=== PATIENT | male | born 1955 | race Caucasian/White ===

== ENCOUNTER → 2018-06-20 07:00 | Outpatient (CLI) | payer OTHER, SELFPAY ==
[2018-06-20 07:38] LABS: AST(SGOT) 30 U/L (15-37); Alanine Aminotransfer ALT/SGPT 37 U/L (16-61); Albumin, Serum 3.7 g/dL (3.2-5.0); Alkaline Phosphatase 91 U/L (45-117); Anion Gap 5 (5-15); BUN 15 mg/dL (7-18); BUN/Creat Ratio 13.4 RATIO (10-20); Calcium,Total 8.7 mg/dL (8.5-10.1); Chloride 107 mmol/L (98-107); Cholesterol 146 mg/dL (200); Creatinine, Serum 1.12 mg/dL (0.70-1.30); EST Glomerular Filtration Rate 71 mL/min (>60); Est Glom Filt Rate - Afr Amer 85 mL/min (>60); Globulin 3.7 g/dL (2.2-4.2); Glucose 120 mg/dL (74-106); High Density Lipoprotein 37 mg/dL; Potassium 4.7 mmol/L (3.5-5.1); Protein, Total 7.4 g/dL (6.4-8.2); Sodium Level 140 mmol/L (136-145); Triglycerides 107 mg/dL; Very Low Density Lipoprotein 21 mg/dL (5-40)
== END ==
PROVIDERS: Family Provider Family Medicine; PCP Family Medicine; Referring Provider Family Medicine; Visit Provider Family Medicine
DX: Z00.00 Encounter for general adult medical examination without abnormal findings (principal)
CPT/HCPCS: 36415; 80053; 80061

== ENCOUNTER → 2018-09-19 10:46 | Outpatient (CLI) | payer OTHER, SELFPAY ==
[2018-09-19 10:04] VITALS: BMI 39.2
--- NOTE | 2018-09-19 10:48 | RAD_ITS ---
STUDY: X-RAY CHEST REASON FOR EXAM: Male, 63 years old. Productive cough TECHNIQUE: Frontal and lateral views of the chest. COMPARISON: None. FINDINGS: The lungs are clear and expanded. There is no demonstrated pleural abnormality. Normal size heart. Normal mediastinum and jerrica. Normal visualized pulmonary arteries. Normal visualized aortic arch and descending thoracic aorta. There are diffuse degenerative changes of the visualized thoracic spine. Normal visualized ribs, clavicles, and shoulders. There is no demonstrated abnormality of the visualized soft tissue structures of the upper abdomen. RAD/Chest PA and Lateral IMPRESSION: No acute pulmonary findings. Electronically Signed: Martin Rivera MD at 4:55 EST Tel , Service support ,
== END ==
PROVIDERS: Family Provider Family Medicine; PCP Family Medicine; Referring Provider Nurse Practitioner Family; Visit Provider Nurse Practitioner Family
DX: R05 Cough (principal)
CPT/HCPCS: 71046

== ENCOUNTER → 2019-07-31 06:37 | Outpatient (CLI) | payer OTHER, SELFPAY ==
[2019-07-08 15:25] VITALS: BMI 39.2
[2019-07-31 08:32] LABS: Hemoglobin A1c 6.2 % (4.2-6.3)
== END ==
PROVIDERS: Family Provider Family Medicine; PCP Family Medicine; Referring Provider Family Medicine; Visit Provider Family Medicine
DX: R73.01 Impaired fasting glucose (principal)
CPT/HCPCS: 36415; 83036

== ENCOUNTER → 2021-06-07 09:52 | Outpatient (CLI) | payer MEDICARE, SELFPAY ==
--- NOTE | 2021-06-07 10:37 | RAD_ITS ---
STUDY: X-RAY - RIGHT HAND REASON FOR EXAM: Male, 66 years old. Pain and swelling TECHNIQUE: 2 view(s) of the hand. COMPARISON: None. FINDINGS: Normal radiocarpal articulation. Normal distal radioulnar joint. Normal visualized carpal bones. Normal carpal articulations Normal carpometacarpal articulation of the thumb. Normal second through fifth carpometacarpal joints. Normal metacarpi. Normal metacarpophalangeal joint of the thumb. Normal interphalangeal joint of the thumb. Normal proximal and distal phalanges of the thumb. Normal metacarpophalangeal joints of the second through fifth fingers. There is diffuse articular joint space narrowing of the proximal and distal interphalangeal joints of the second through fifth fingers, with gullwing deformities, and subchondral erosions. Normal phalanges of the second through fifth fingers. The soft tissue structures are unremarkable. RAD/Hand 2 Views IMPRESSION: Distal joint arthrosis, no demonstrated fracture or suspicious osseous lesion Electronically Signed: Hollis Devries MD at 14:16 EDT , Service support ,
--- NOTE | 2021-06-07 10:38 | RAD_ITS ---
STUDY: X-RAY - LEFT HAND REASON FOR EXAM: Male, 66 years old. SWOLLEN JOINTS -- BILATERAL 2 VIEW HAND PER ORDER TECHNIQUE: view(s) of the hand. COMPARISON: None. FINDINGS: Normal radiocarpal articulation. Normal distal radioulnar joint. Normal visualized carpal bones. Normal carpal articulations Normal carpometacarpal articulation of the thumb. Normal second through fifth carpometacarpal joints. Normal metacarpi. Normal metacarpophalangeal joint of the thumb. Normal interphalangeal joint of the thumb. Normal proximal and distal phalanges of the thumb. Normal metacarpophalangeal joints of the second through fifth fingers. There is diffuse articular joint space narrowing of the proximal and distal interphalangeal joints of the second through fifth fingers, with gullwing deformities and subchondral erosions. Normal phalanges of the second through fifth fingers. The soft tissue structures are unremarkable. RAD/Hand 2 Views IMPRESSION: Distal joint arthrosis, no demonstrated fracture or suspicious osseous lesion Electronically Signed: Hollis Devries MD at 14:16 EDT , Service support ,
[2021-06-07 11:14] LABS: AST(SGOT) 23 U/L (15-37); Alanine Aminotransfer ALT/SGPT 41 U/L (16-61); Albumin, Serum 3.6 g/dL (3.2-5.0); Alkaline Phosphatase 85 U/L (45-117); Anion Gap 1 (5-15); BUN 16 mg/dL (7-18); Calcium,Total 9.1 mg/dL (8.5-10.1); Chloride 107 mmol/L (98-107); Cholesterol 169 mg/dL (200); Creatinine, Serum 1.07 mg/dL (0.70-1.30); EST Glomerular Filtration Rate 74 mL/min (>60); Est Glom Filt Rate - Afr Amer 89 mL/min (>60); Globulin 3.7 g/dL (2.2-4.2); Glucose 180 mg/dL (74-106); High Density Lipoprotein 40 mg/dL; Potassium 3.9 mmol/L (3.5-5.1); Protein, Total 7.3 g/dL (6.4-8.2); Sodium Level 139 mmol/L (136-145); Triglycerides 185 mg/dL; Very Low Density Lipoprotein 37 mg/dL (5-40)
== END ==
PROVIDERS: PCP Family Medicine; Referring Provider Family Medicine; Visit Provider Family Medicine
DX: Z13.6 Encounter for screening for cardiovascular disorders (principal); M19.041 Primary osteoarthritis, right hand; M19.042 Primary osteoarthritis, left hand
CPT/HCPCS: 36415; 73120; 80053; 80061

== ENCOUNTER → 2021-09-04 08:20 | Outpatient (CLI) | payer MEDICARE, SELFPAY ==
[2021-09-04 13:00] LABS: Hemoglobin A1c 6.2 % (3.8-5.6)
== END ==
PROVIDERS: PCP Family Medicine; Visit Provider Family Medicine
DX: R53.83 Other fatigue (principal); R73.9 Hyperglycemia, unspecified
CPT/HCPCS: 36415; 83036; 84403

== ENCOUNTER → 2022-07-04 | Outpatient (CLI) | payer MEDICARE, SELFPAY ==
[2022-07-04 12:24] LABS: Absolute Lymphocyte Count 3.15 X10^3/uL (0.83-4.51); Absolute Neutrophil Count 3.9 X10^3/uL (2.0-7.7); Basophil# 0.08 X10^3/uL; Basophil% 0.9 % (0-1); Eosinophil# 0.43 X10^3/uL; Eosinophils% 5.1 % (0-5); Hematocrit 47.1 % (40-54); Hemoglobin 15.3 g/dL (13.0-16.5); Lymphocyte # 3.15 X10^3/ul (0.83-4.51); Lymphocyte % 37.1 % (19-41); Mean Corp Hgb Conc 32.5 g/dL (32-36); Mean Corpuscular Hgb 27.8 pg (27.0-32.0); Mean Corpuscular Volume 85.6 fL (80-94); Mean Platelet Vol. 10.4 fl (6.2-12.0); Monocyte# 0.87 X10^3/uL; Monocyte% 10.3 % (0-10); NRBC Flagged by Analyzer 0 % (0-5); Neutrophil # 3.93 X10^3/uL (2.7-7.7); Neutrophil % 46.4 % (47-70); Platelet Count 218 K/mm3 (150-450); RBC Distribution Width CV 13.3 % (11.6-14.6); RBC Distribution Width SD 41.4 fl (35.1-43.9); White Blood Count 8.5 K/mm3 (4.4-11.0)
[2022-07-04 12:52] LABS: ALB/GLOB Ratio 1.1 RATIO (0.9-2.4); AST(SGOT) 27 U/L (15-37); Alanine Aminotransfer ALT/SGPT 46 U/L (16-61); Albumin, Serum 3.8 g/dL (3.2-5.0); Alkaline Phosphatase 87 U/L (45-117); Anion Gap 4 (5-15); BUN 15 mg/dL (7-18); BUN/Creat Ratio 13.5 RATIO (10-20); Calcium,Total 9.5 mg/dL (8.5-10.1); Chloride 108 mmol/L (98-107); Cholesterol 155 mg/dL (200); Creatinine, Serum 1.11 mg/dL (0.70-1.30); EST Glomerular Filtration Rate 70 mL/min (>60); Est Glom Filt Rate - Afr Amer 85 mL/min (>60); Globulin 3.6 g/dL (2.2-4.2); Glucose 88 mg/dL (74-106); High Density Lipoprotein 39 mg/dL; Potassium 4.4 mmol/L (3.5-5.1); Protein, Total 7.4 g/dL (6.4-8.2); Sodium Level 142 mmol/L (136-145); Thyroid Stim Hormone (TSH) 4.27 uIU/mL (0.358-3.74); Triglycerides 158 mg/dL; Very Low Density Lipoprotein 32 mg/dL (5-40)
[2022-07-04 13:16] LABS: Hemoglobin A1c 6.5 % (3.8-5.6)
== END | disposition home or self-care (01) ==
LOC: BIMLAB 11:02
PROVIDERS: PCP Family Medicine; Referring Provider Nurse Practitioner Family; Visit Provider Nurse Practitioner Family
DX: Z00.00 Encounter for general adult medical examination without abnormal findings (principal); E11.65 Type 2 diabetes mellitus with hyperglycemia; Z12.5 Encounter for screening for malignant neoplasm of prostate; G47.30 Sleep apnea, unspecified
CPT/HCPCS: 36415; 80053; 80061; 83036; 84153; 84443; 85025; G0103

== ENCOUNTER → 2023-07-11 | Outpatient (CLI) | payer MEDICARE, SELFPAY ==
--- NOTE | 2023-07-12 | LES_PTH ---
PATIENT: RODRÍGUEZ BROOKS III LOC: [facility] U#:[id number] AGE/SX: 68/M ROOM: RE07/11/[address]: Dr. Cristi Toledo DO : 1955 BED: DIS: 07/11/2023 SPEC #: [id number] RECD: 07/12/23 13:18 STATUS: [place] RESera #: [id number] TRAVIS: 07/12/23 00:[address]: Cristi Toledo DEPT: SURGICAL PATHOLOGY RECD BY: Kulwinder Covarrubias Tissues: Skin of back, NOS Procedures: Surgery Specimen Level IV HEADER OPERATION: Lesion removal from left mid back PRE-OP DIAGNOSIS: Basal cell carcinoma of back TISSUE SUBMITTED: Mid left back MICROSCOPIC DIAGNOSIS Left mid back lesion, shave biopsy: Basal cell carcinoma with ulceration and associated inflammation. See comment. ZORAN:cassia 07/15/2023 COMMENT The tumor is present at the deep margin of the specimen. Case has been reviewed in consultation with Dr. Jimenez who concurs with the above diagnosis. IDC:AM MICROSCOPIC DESCRIPTION Slides are reviewed. GROSS DESCRIPTION Received is one container labeled with the patient's name and not further designated. The specimen consists of a piece of persaud-white skin measuring 1.0 x 0.7 cm and up to 0.2 cm in thickness. The specimen is inked, serially sectioned and submitted entirely in one cassette. / SJ:rg 07/12/2023 TC:0 CPT: 47507
== END | disposition home or self-care (01) ==
LOC: LABSPEC 07-12 11:07
PROVIDERS: PCP Family Medicine; Referring Provider Family Medicine; Visit Provider Family Medicine
DX: C44.519 Basal cell carcinoma of skin of other part of trunk (principal)
CPT/HCPCS: 88305

== ENCOUNTER → 2023-08-27 | Outpatient (CLI) | payer MEDICARE, SELFPAY ==
[2023-08-27 16:40] LABS: AST(SGOT) 29 U/L (15-37); Alanine Aminotransfer ALT/SGPT 47 U/L (16-61); Albumin, Serum 3.9 g/dL (3.2-5.0); Alkaline Phosphatase 90 U/L (45-117); Anion Gap 2 (5-15); BUN 14 mg/dL (7-18); BUN/Creat Ratio 13.9 RATIO (10-20); Calcium,Total 8.9 mg/dL (8.5-10.1); Chloride 108 mmol/L (98-107); Cholesterol 158 mg/dL (200); Creatinine, Serum 1.01 mg/dL (0.70-1.30); EST Glomerular Filtration Rate 78 mL/min (>60); Est Glom Filt Rate - Afr Amer 95 mL/min (>60); Globulin 3.8 g/dL (2.2-4.2); Glucose 99 mg/dL (74-106); High Density Lipoprotein 41 mg/dL; Potassium 4.1 mmol/L (3.5-5.1); Protein, Total 7.7 g/dL (6.4-8.2); Sodium Level 140 mmol/L (136-145); Triglycerides 213 mg/dL; Very Low Density Lipoprotein 43 mg/dL (5-40)
== END | disposition home or self-care (01) ==
LOC: BIMLAB 15:12
PROVIDERS: PCP Family Medicine; Referring Provider Family Medicine; Visit Provider Family Medicine
DX: E11.9 Type 2 diabetes mellitus without complications (principal)
CPT/HCPCS: 36415; 80053; 80061

== ENCOUNTER → 2025-02-03 | Outpatient (CLI) | payer MEDICARE, SELFPAY ==
[2025-02-03 16:47] LABS: Absolute Lymphocyte Count 2.87 X10^3/uL (0.83-4.51); Absolute Neutrophil Count 3.4 X10^3/uL (2.0-7.7); Basophil# 0.11 X10^3/uL; Basophil% 1.5 % (0-1); Eosinophils% 5.3 % (0-5); Hematocrit 44.5 % (40-54); Hemoglobin 14.6 g/dL (13.0-16.5); Lymphocyte # 2.87 X10^3/ul (0.83-4.51); Mean Corp Hgb Conc 32.8 g/dL (32-36); Mean Corpuscular Volume 82.4 fL (80-94); Mean Platelet Vol. 10.6 fl (6.2-12.0); Monocyte# 0.77 X10^3/uL; Monocyte% 10.2 % (0-10); NRBC Flagged by Analyzer 0 % (0-5); Neutrophil % 44.9 % (47-70); Platelet Count 209 K/mm3 (150-450); RBC Distribution Width CV 13.4 % (11.6-14.6); RBC Distribution Width SD 39.9 fl (35.1-43.9); White Blood Count 7.6 K/mm3 (4.4-11.0)
[2025-02-03 17:56] LABS: ALB/GLOB Ratio 1.3 RATIO (0.9-2.4); AST(SGOT) 25 U/L (<=37); Alanine Aminotransfer ALT/SGPT 26 U/L (<=46); Albumin, Serum 4.2 g/dL (3.4-4.8); Alkaline Phosphatase 97 U/L (40-129); Anion Gap 10 (5-15); BUN 13 mg/dL (4-19); BUN/Creat Ratio 13.5 RATIO (10-20); Calcium,Total 9.4 mg/dL (7.6-11.0); Carbon Dioxide 26.1 mmol/L (21.0-32.0); Chloride 104 mmol/L (98-108); Cholesterol 152 mg/dL (<=200); Creatinine, Serum 0.98 mg/dL (0.70-1.20); EST Glomerular Filtration Rate 84 (>60); Globulin 3.1 g/dL (2.2-4.2); Glucose 108 mg/dL (70-99); High Density Lipoprotein 37 mg/dL; Low Density Lipoprotein Calc. 81 mg/dL; Protein, Total 7.3 g/dL (5.9-8.4); Sodium Level 141 mmol/L (133-145); Total Bilirubin 0.38 mg/dL (0.00-1.30); Triglycerides 171 mg/dL; Very Low Density Lipoprotein 34 mg/dL (5-40)
[2025-02-03 19:27] LABS: Hemoglobin A1c 7.5 % (<=5.6)
== END | disposition home or self-care (01) ==
LOC: BIMLAB 15:08
PROVIDERS: PCP Family Medicine; Referring Provider Physician Assistant; Visit Provider Physician Assistant
DX: E11.9 Type 2 diabetes mellitus without complications (principal); E66.9 Obesity, unspecified; R53.83 Other fatigue
CPT/HCPCS: 36415; 80053; 80061; 83036; 84443; 85025

== ENCOUNTER → 2025-02-10 | Outpatient (CLI) | payer MEDICARE, SELFPAY ==
--- NOTE | 2025-02-10 14:00 | US_ITS ---
PROCEDURE: TESTICULAR WITH ARTERIAL FLOW 02/10/2025 REASON FOR EXAM: SCROTAL MASS Left palpable lump. TECHNIQUE: Jiang scale imaging and color and spectral Doppler analysis of the scrotal contents. COMPARISON: None FINDINGS: RIGHT testicle: 4.2 cm x 3.4 cm x 2.3 cm Homogeneous echotexture. No intratesticular mass. Right epididymis: The epididymis measures 1.2 cm 1.4 cm x 1.3 cm. Small right hydrocele. LEFT testicle: 4 cm x 3.5 cm x 2.5 cm Homogeneous echotexture. No intratesticular mass. Left epididymis: The epididymis measuring 1 cm x 1.2 cm 1.4 cm. The palpable lump corresponds to a 1.5 cm x 1.4 cm 1.2 cm hypoechoic nodule along the epididymal tail with focal calcification. Other findings: Small left hydrocele. DOPPLER FINDINGS: Symmetric color doppler blood flow signal at both testes. Normal arterial inflow and venous outflow waveforms at both testes. US/Testicular with Arterial Flow IMPRESSION: Small bilateral hydroceles. The palpable lump corresponds to a 1.5 cm 1.4 cm 1.2 cm hypoechoic nodule with central calcification along the epididymal tail on the left side. Reading Location: [facility]
== END | disposition home or self-care (01) ==
LOC: US 13:59
PROVIDERS: PCP Family Medicine; Referring Provider Physician Assistant; Visit Provider Physician Assistant
DX: N50.89 Other specified disorders of the male genital organs (principal)
CPT/HCPCS: 76870; 93976

== ENCOUNTER → 2025-03-02 | Outpatient (CLI) | payer MEDICARE, SELFPAY ==
[2025-03-02 16:33] LABS: PSA,Total - Annual Screen 2.07 ng/mL (0.02-4.00)
--- OUTSIDE RECORDS SUMMARY | 2025-03-02 23:53 | XMS RPT_ITS | CCD ---
Author Organization [facility] Care Team Providers Care Card Folder Name Role Phone Unavailable Primary Care Provider UnavailDr. Pratik Landrum Primary Care Provider [phone] Dr. Pratik Toledo Referring Provider [phone] [place]ita DISTRIBUTION ESTIMATOR, NELLY Rodriguez Attending Provider [phone] PRATIK TOLEDO DO Primary Care Physician GINNA AYALA DO Attending Unavailable PRATIK TOLEDO DO Primary Care Unavailable Dr. Pratik Toledo Primary Care Provider [phone] Dr. Pratik Toledo Attending Provider [phone] Dr. Pratik Toledo Referring Provider [phone] Pratik Toledo DO Primary Care Provider PRATIK TOLEDO Primary Care Unavailable ERWIN CHOW Attending Unavailable ERWIN CHOW Referring Unavailable PRATIK TOLEDO Primary Care Unavailable Dr. Pratik Toledo DO Primary Care Provider [phone] Dr. Pratik Toledo DO Referring Provider [phone] Rogers Ortiz Attending Provider [phone] Rogers Ortiz Referring Provider [phone] Pratik Toledo DO Attending Provider [phone] Pratik Toledo Primary Care Unavailable Rogers Ortiz Attending Unavailable Rogers Ortiz Referring Unavailable Pratik Toledo Primary Care Unavailable Pratik Toledo Attending Unavailable Pratik Toledo Referring Unavailable Pratik Toledo R Primary Care Unavailable Rogers Ortiz Attending Unavailable Pratik Toledo R Referring Unavailable Pratik Toledo Attending Unavailable Tre, Pratik R Referring Unavailable Brown, Pratik R Primary Care Unavailable Pratik Toledo Attending Unavailable Pratik Toledo Referring Unavailable Pratik Toledo Primary Care Unavailable Pratik Toledo Primary Care Unavailable Rogers Ortiz Attending Unavailable Rogers Ortiz Referring Unavailable Allergies Allergy Classification Reported Allergen(s) Allergy Type Date of Onset Reaction(s) Facility (5 sources) semaglutide Drug Allergy 3 Abd cramps/diarrhea [facility] (1 source) semaglutide Drug allergy (disorder) 5 [facility] Repository Medications Current Medications Medication Drug Class(es) Dates Sig (Normalized) Sig (Original) amoxicillin 875 mg / clavulanate 125 mg oral tablet (1 source) Penicillin-class Antibacterial Start: 07-20-2023 End: 07-27-2023 take 1 tablet by mouth every twelve hours amoxicillin-clavu lanate 875 mg-125 mg oral tablet 1 tab(s), Oral, q12h, X 7 day(s), # 14 tab(s), 0 Refill(s), 07/27/23 5:05:00 AM EDT, 129.5 Start Date: 07/20/23 Stop Date: 07/27/23 Status: Ordered [place] (Nk) (3 sources) Start: 02-03-2025 [place] (Nk) Active February 03, 2025 12:00am Tirzepatide (Mounjaro) 5 mg/0.5 mL pen injector (1 source) Start: 02-17-2025 Tirzepatide (Mounjaro) 5 mg/0.5 mL pen injector Active 5 mg SC EVERY WEEK 2 February 17, 2025 12:00am Completed/Discontinued Medications Medication Drug Class(es) Dates Sig (Normalized) Sig (Original) Carboxymethylcellu lose-Citric (Plenity (Welcome Kit)) 0.75 gram capsule (6 sources) Start: 11-29-2021 End: 07-11-2023 take 1 capsule by mouth twice daily before lunch Carboxymethylcellul ose-Citric (Plenity (Welcome Kit)) 0.75 gram capsule Discontinued 3 NMA PO TWICE A DAY 180 November 29, 2021 1:00am July 11, 2023 2:31pm administer before lunch and evening meal/dinner Start: 11-29-2021 End: 07-11-2023 Carboxymethylcellulose-Citri c (Plenity (Welcome Kit)) 0.75 gram capsule Discontinued 3 CAP PO TWICE A DAY 180 November 29, 2021 12:00am July 11, 2023 1:31pm administer before lunch and evening meal/dinner Start: 11-29-2021 Carboxymethylc ellulose-Citric (Plenity (Welcome Kit)) 0.75 gram capsule Active 3 CAP PO TWICE A DAY 180 November 29, 2021 1:00am administer before lunch and evening meal/dinner codeine phosphate 2 mg/ml / guaiFENesin 20 mg/ml oral solution (6 sources) Opioid Agonist Start: 09-19-2018 End: 07-08-2019 take 5-10 mL by mouth every six hours as needed for cough Codeine-Guaifenesin (Cheratussin Ac) 10-100 mg/5 mL liquid Discontinued 0 PO EVERY 6 HOURS as needed for cough 120 September 19, 2018 1:00am July 08, 2019 3:24pm 5-10 mL PO Q6H PRN Start: 09-19-2018 End: 07-08-2019 take 5-10 mL by mouth every six hours as needed Codeine-Guaifenesin (Cheratussin Ac) 10-100 mg/5 mL liquid Discontinued 0 PO EVERY 6 HOURS 120 September 19, 2018 12:00am July 08, 2019 2:24pm 5-10 mL PO Q6H PRN fluorouracil 50 mg/ml topical cream (4 sources) Nucleoside Metabolic Inhibitor Start: 06-16-2024 End: 02-03-2025 Fluorouracil 5 % cream Discontinued 1 NMA TOPICAL TWICE A DAY 40 June 16, 2024 12:00am February 03, 2025 2:25pm phentermine hydrochloride 30 mg oral capsule (18 sources) Sympathomimetic Amine Anorectic Start: 08-04-2019 End: 06-02-2020 take 1 capsule by mouth once daily 2 hour(s) after breakfast Phentermine 30 mg capsule Discontinued 30 mg PO EVERY MORNING August 04, 2019 1:00am June 02, 2020 11:20am must administer 2 hours after breakfast Start: 06-25-2018 End: 09-19-2018 take 1 capsule by mouth once daily 2 hour(s) after breakfast Phentermine 30 mg capsule Discontinued 30 mg PO DAILY July 02, 2018 2:31pm September 19, 2018 11:04am administer 2 hours after breakfast predniSONE 10 mg oral tablet (6 sources) Start: 09-19-2018 End: 07-08-2019 Prednisone 10 mg tablet Discontinued 0 PO daily September 19, 2018 1:00am July 08, 2019 3:24pm 4 tabs for 3 days, then 3 tabs for 3 days, then 2 tabs for 3 days, then 1 tab for 3 days PO QDAY; administer with food or milk 0.25 mg, 0.5 mg dose 1.5 ml semaglutide 1.34 mg/ml pen injector (8 sources) Start: 07-04-2022 End: 07-11-2023 Semaglutide (Ozempic) 0.25 m g or 0.5 mg(2 mg/1.5 mL) pen injector Discontinued 0.25 mg SC EVERY WEEK 1.July 04, 2022 12:00am July 11, 2023 2:31pm for 4 doses Start: 09-07-2021 End: 11-29-2021 Semaglutide Discontinued 1 M G SC EVERY WEEK 3 September 07, 2021 12:00am November 29, 2021 2:54pm Semaglutide 1 mg/dose (2 mg/1.5 mL) pen injector (4 sources) Start: 09-07-2021 End: 11-29-2021 Semaglutide 1 mg/dose (2 mg/1.5 mL) pen injector Discontinued 1 mg SC EVERY WEEK 3 September 07, 2021 1:00am November 29, 2021 3:54pm tretinoin 0.5 mg/ml topical cream (5 sources) Retinoid Start: 08-27-2023 End: 02-03-2025 Tretinoin (Retin-A) 0.05 % cream Discontinued 1 NMA TOPICAL AT BEDTIME August 27, 2023 1:00am February 03, 2025 2:25pm Start: 08-27-2023 Tretinoin (Ret in-A) 0.05 % cream Active 1 APPLIC TOPICAL AT BEDTIME August 27, 2023 12:00am Problems Active Problems Problem Classification Problem Date Documented Da te Episodic/Chronic Acquired foot deformities (6 sources) Hammer toe; Translations: [Other hammer toe(s) (acquired), right foot] Onset: 08-12-2024 08-12-2024 Chronic Diabetes mellitus without complication (14 sources) Type 2 diabetes mellitus; Translations: [Type 2 diabetes mellitus without complications] Onset: 02-10-2025 Chronic Diabetes mellitus without complication (6 sources) Hyperglycemia; Translations: [Hyperglycemia, unspecified] 06-08-2021 Episodic Malaise and fatigue (7 sources) Fatigue; Translations: [Other fatigue] Onset: 02-03-2025 08-30-2021 Episodic Other circulatory disease (8 sources) Elevated blood pressure; Translations: [Elevated blood-pressure reading, without diagnosis of hypertension] 02-03-2025 Episodic Other circulatory disease (1 source) Elevated blood-pressure reading, without diagnosis of hypertension; Translations: [Elevated blood-pressure reading, without diagnosis of hypertension] Onset: 02-03-2025 Episodic Other male genital disorders (4 sources) Scrotal mass; Translations: [Other specified disorders of the male genital organs] 02-03-2025 Episodic Other male genital disorders (8 sources) Mass of epididymis; Translations: [Other specified disorders of the male genital organs] 02-03-2025 Episodic Other male genital disorders (1 source) Other specified disorders of the male genital organs; Translations: [Other specified disorders of the male genital organs] Onset: 02-15-2025 Episodic Other non-traumatic joint disorders (6 sources) Joint swelling; Translations: [Effusion, unspecified joint] 06-07-2021 Episodic Other non-traumatic joint disorders (2 sources) Pain of left wrist; Translations: [Pain in left wrist] 08-07-2024 Episodic Other non-traumatic joint disorders (1 source) Pain in left wrist; Translations: [Wrist pain, left] Onset: 08-07-2024 Episodic Other nutritional; endocrine; and metabolic disorders (8 sources) Body mass index 30+ - obesity; Translations: [Obesity, unspecified] 02-03-2025 Chronic Other nutritional; endocrine; and metabolic disorders (1 source) Obesity, unspecified; Translations: [Obesity, unspecified] Onset: 02-03-2025 Chronic Other skin disorders (6 sources) Inflamed seborrheic keratosis; Translations: [Inflamed seborrheic keratosis] 06-02-2020 Episodic Other skin disorders (1 source) Inflamed seborrheic keratosis; Translations: [Inflamed seborrheic keratosis] 08-27-2023 Episodic Otitis media and related conditions (2 sources) Otitis media; Translations: [Otitis media, unspecified, unspecified ear] Onset: 07-20-2023 Episodic Residual codes; unclassified (6 sources) Sleep apnea; Translations: [Sleep apnea, unspecified] 06-03-2018 Chronic Sprains and strains (2 sources) Sprain of left wrist; Translations: [Unspecified sprain of left wrist, initial encounter] Onset: 08-07-2024 08-07-2024 Episodic Superficial injury; contusion (2 sources) Abrasion of left forearm; Translations: [Abrasion of left forearm, initial encounter] Onset: 08-07-2024 08-07-2024 Episodic Past or Other Problems Problem Classification Problem Date Documented Da te Episodic/Chronic Other non-epithelial cancer of skin (8 sources) Basal cell carcinoma of back; Translations: [Basal cell carcinoma of skin of other part of trunk] Onset: 08-12-2024 07-11-2023 Episodic Results Test Name Value Interpretation Reference Range Facility Internal Medicine Office Vis iton 02-17-2025 Internal Medicine Office Visit [facility] [address] [place] [address] OFFICE VISIT Date of Service: 02/17/25 MR#: [id number] Acct: [id number] Name: RODRÍGUEZ BROOKS III Rep #: [id number] : 1955 Provider: Dr. Pratik borrego, DO Age/Sex: 69/M Location: [facility] [place] Status: Signed Intake Vital Signs 02/03/25 14:24 02/17/25 10:11 Height 6 ft 6 ft Weight: 289 lb 289 lb BMI 39.2 39.2 BP 162/94 H 160/82 H Blood Pressure Location Lt brachial Lt brachial Position Sitting Sitting Respiration 18 18 Pulse 93 67 Pulse Source Monitor Monitor Temp 97.8 F 98.2 F Temp Source Temporal Temporal Pulse Oximetry (%) 97 97 Oxygen Delivery Method room air room air Intake Visit Reasons: FOLLOW UP Chief Complaint: FOLLOW UP Is patient in pain?: Yes (2 all over ) Allergies semaglutide (From Ozempic) Adverse Reaction (Severe, Verified 02/17/25 10:11) Abd cramps/diarrhea Medications ???Medication ???Instructions ???Recorded ???Confirmed ???Type tirzepatide 5 mg/0.5 mL 5 mg (0.5 mL) subcut QWEEK #2 mL 0 02/17/25 02/17/25 Rx subcutaneous pen injector (Macie) Have you fallen in the past year?: Yes (x1) [facility] Medical History Type 2 diabetes mellitus Encounter for preventative adult health care examination Sleep apnea Surgical History History of orthopedic surgery History of appendectomy History of trigger finger Family History Father Non-Hodgkin lymphoma Diabetes Mother CVA (cerebral vascular accident) Social History Smoking Status: Former smoker how long ago did patient quit smokin alcohol intake: current alcohol intake frequency: holidays/special occasions only Alcohol type: beer substance use type: does not use what type of physical activity do you participate in: none HPI HPI Chief Complaint: FOLLOW UP Details: RODRÍGUEZ BROOKS, is a 69 M who presents to the office today for review of his blood work. His hemoglobin A1c is up to 7.5 so he is definitely diabetic. He has been trying to control it with diet and exercise but it has been ineffective. I went over options on medicines to treat this with and he chose to go with Macie. ROS Const Constitutional: No body ache, chills, excessive sweating, fatigue, fever(s), frequent falls, headache(s), snoring, weight change, sleep problems, abnormal sleep pattern or change in appetite Eyes Eyes: No blurry vision, change in vision, eye pain or Light sensitivity ENT ENT: No abnormal hearing, ear or mastoid pain, tinnitus, nasal congestion, headache(s), neck pain or sore throat Resp Respiratory: No cough, shortness of breath, snoring or wheezing Cardio Cardiology: No chest pain at rest, chest pain with exertion, excessive sweating, shortness of breath, dyspnea on exertion, lightheadedness, orthopnea or palpitations Gastro GI: No abdominal pain, change in bowel habits, constipation, cramping, diarrhea, nausea/dyspepsia or vomiting Genitourinary Male: No burning urination, painful urination, urinary incontinence or urinary frequency Musc Musculoskeletal: No abnormal gait, joint pain, back pain, limited range of motion, neck pain, numbness or tingling Skin Skin: No dry skin, redness, lesions, itchy eyes, rash or wounds Neuro Neurology: No abnormal gait, abnormal hearing, frequent falls, headache(s), memory loss, numbness or tingling Psych Psychiatric: No abnormal sleep pattern, No anxiety, No change in appetite, No irritability, No memory loss and No Thoughts of harming yourself/Others Endo Endocrine: No cold intolerance, excessive sweating, fatigue, flushing, heat intolerance, increased thirst/drinking, increased hunger or weight change Aller/Imm Allergy/Immunologic : No itchy eyes, seasonal allergy symptoms, hives or wheezing Wes/Lymp Hematologic/Lymphat ic: No easy bleeding, easy bruising, enlarged lymph nodes or other Exam Const General: cooperative and healthy appearing Nutritional Appearance: overweight Orientation: oriented x3 HENMT Head: normal to inspection Eyes General: appearance normal, both eyes and all related structures Neck Neck: normal visual inspection Resp Effort Inspection: normal respiratory effort Auscultation: Bilateral: Clear to Auscultation Cardio Rate: regular rate Rhythm: regular rhythm Heart Sounds: no murmurs Musc Musculoskeletal: No joint tenderness Neuro General: patient oriented x3 Extrem General: other (Hammertoes of both feet causing some pain in the ball of the foot.) Psych Appearance: grossly normal Judgment: judgment good Coding Level of Care Code (more content not included)... Normal [facility] Testicular with Arterial Delmer won 02-10-2025 Testicular with Arterial Flow [facility] [address] [place] [address] Testicular with Arterial Flow MR#: [id number] Acct: [id number] Name: RODRÍGUEZ BROOKS III Rep #: [id number] : 1955 M 69 From: Lenny lara MD PCP: Dr. Pratik Toledo, DO Status: REG CLI Study: Testicular with Arterial Flow Date of Exam: Exam# [id number] Ordering Dr: Rogers Draper PROCEDURE: TESTICULAR WITH ARTERIAL FLOW 02/10/2025 REASON FOR EXAM: SCROTAL MASS Left palpable lump. TECHNIQUE: Jiang scale imaging and color and spectral Doppler analysis of the scrotal contents. COMPARISON: None FINDINGS: RIGHT testicle: 4.2 cm x 3.4 cm x 2.3 cm Homogeneous echotexture. No intratesticular mass. Right epididymis: The epididymis measures 1.2 cm 1.4 cm x 1.3 cm. Small right hydrocele. LEFT testicle: 4 cm x 3.5 cm x 2.5 cm Homogeneous echotexture. No intratesticular mass. Left epididymis: The epididymis measuring 1 cm x 1.2 cm 1.4 cm. The palpable lump corresponds to a 1.5 cm x 1.4 cm 1.2 cm hypoechoic nodule along the epididymal tail with focal calcification. Other findings: Small left hydrocele. DOPPLER FINDINGS: Symmetric color doppler blood flow signal at both testes. Normal arterial inflow and venous outflow waveforms at both testes. US/Testicular with Arterial Flow IMPRESSION: Small bilateral hydroceles. The palpable lump corresponds to a 1.5 cm 1.4 cm 1.2 cm hypoechoic nodule with central calcification along the epididymal tail on the left side. Reading Location: [place] [address] CC: Dr. Pratik Toledo DO; PETER Troncoso [employer] Supervisor: Signed Normal [facility] Absolute lymphocyte countOrd ered By: Rogers Draper on 02-03-2025 Lymphocytes Auto (Unsp spec) [#/Vol] 2.87 10*3/uL 0.83-4.51 [facility] Absolute neutrophil countOrd ered By: Rogers Draper on 02-03-2025 Neutrophils (Bld) [#/Vol] 3.4 10*3/uL 2.0-7.7 [facility] Anion gap in Serum or Plasma Ordered By: Rogers Draper on 02-03-2025 Anion gap [Moles/Vol] 10 mmol/L 5-15 [facility] Automated lymphocyte count a s percentage of total leukocytesOrdered By: Rogers Wayt on 02-03-2025 Lymphocytes/100 WBC Auto (Unsp spec) 38.0 % - [facility] BUN/creatinine ratioOrdered By: Rogers Cmvilma on 02-03-2025 Urea nitrogen/Creatinine [Mass ratio] 13.5 mg/mg 10-20 [facility] Basophil percentageOrdered B y: Rogers Pabonvilma on 02-03-2025 Basophils/100 WBC (Bld) 1.5 % High 0-1 [facility] Bilirubin, totalOrdered By: Rogers Draper on 02-03-2025 Bilirubin [Mass/Vol] 0.38 mg/dL 0.00-1.30 [facility] CBC W/Diff, Automatedon 01-21 Absolute Lymph 2.87 X10 3/uL Normal 0.83-4.51 [facility] Comment on above: Performed By: #### L 100.0100, L500.4050, L500.4100, L501.9520, L501.9985 #### [facility] [address] [place], [address] Absolute Neut 3.4 X10 3/uL Normal 2.0-7.7 [facility] Comment on above: Performed By: #### L 100.0100, L500.4050, L500.4100, L501.9520, L501.9985 #### [facility] [address] [place], [address] Basophils/100 WBC (Bld) 1.5 % High 0-1 [facility] Comment on above: Performed By: #### L 100.0100, L500.4050, L500.4100, L501.9520, L501.9985 #### [facility] [address] [place], [address] Eosinophils/100 WBC (Bld) 5.3 % High 0-5 [facility] Comment on above: Performed By: #### L 100.0100, L500.4050, L500.4100, L501.9520, L501.9985 #### [facility] [address] [place], [address] Erythrocyte distribution width (RBC) [Ratio] 13.4 % Normal 11.6-14.6 [facility] Comment on above: Performed By: #### L 100.0100, L500.4050, L500.4100, L501.9520, L501.9985 #### [facility] [address] [place], [address] Hematocrit (Bld) [Volume fraction] 44.5 % Normal 40-54 [facility] Comment on above: Performed By: #### L 100.0100, L500.4050, L500.4100, L501.9520, L501.9985 #### [facility] [address] [place], [address] Hemoglobin (Bld) [Mass/Vol] 14.6 g/dL Normal 13.0-16.5 [facility] Comment on above: Performed By: #### L 100.0100, L500.4050, L500.4100, L501.9520, L501.9985 #### [facility] [address] [place], [address] IG% 0.100 Normal 0.0-0.9 [facility] Comment on above: Result Comment: IG% - Immature Granulocytes (promyelocytes, myelocytes and metamyelocytes) > 1% indicates that a LEFT SHIFT is Present. Performed By: #### L 100.0100, L500.4050, L500.4100, L501.9520, L501.9985 #### [facility] [address] [place], [address] Lymphocytes/100 WBC (Bld) 38.0 % Normal 19-41 [facility] Comment on above: Performed By: #### L 100.0100, L500.4050, L500.4100, L501.9520, L501.9985 #### [facility] [address] [place], [address] MCH (RBC) [Entitic mass] 27.0 pg Normal 27.0-32.0 [facility] Comment on above: Performed By: #### L 100.0100, L500.4050, L500.4100, L501.9520, L501.9985 #### [facility] [address] [place], [address] MCHC (RBC) [Mass/Vol] 32.8 g/dL Normal 32-36 [facility] Comment on above: Performed By: #### L 100.0100, L500.4050, L500.4100, L501.9520, L501.9985 #### [facility] [address] [place], [address] MCV (RBC) [Entitic vol] 82.4 fL Normal 80-94 [facility] Comment on above: Performed By: #### L 100.0100, L500.4050, L500.4100, L501.9520, L501.9985 #### [facility] [address] [place], [address] Monocytes/100 WBC (Bld) 10.2 % High 0-10 [facility] Comment on above: Performed By: #### L 100.0100, L500.4050, L500.4100, L501.9520, L501.9985 #### [facility] [address] [place], [address] Neutrophils/100 WBC (Bld) 44.9 % Low 47-70 [facility] Comment on above: Performed By: #### L 100.0100, L500.4050, L500.4100, L501.9520, L501.9985 #### [facility] [address] [place], [address] Nucleated RBC (Bld) [#/Vol] 0 10*3/uL Normal 0-5 [facility] Comment on above: Performed By: #### L 100.0100, L500.4050, L500.4100, L501.9520, L501.9985 #### [facility] [address] [place], [address] Platelet mean volume (Bld) [Entitic vol] 10.6 fL Normal 6.2-12.0 [facility] Comment on above: Performed By: #### L 100.0100, L500.4050, L500.4100, L501.9520, L501.9985 #### [facility] [address] [place], [address] Platelets (Bld) [#/Vol] 209 10*3/uL Normal 150-450 [facility] Comment on above: Performed By: #### L 100.0100, L500.4050, L500.4100, L501.9520, L501.9985 #### [facility] [address] [place], [address] RBC (Bld) [#/Vol] 5.40 10*6/uL Normal 4.6-6.2 [facility] Comment on above: Performed By: #### L 100.0100, L500.4050, L500.4100, L501.9520, L501.9985 #### [facility] [address] [place], [address] RDW SD 39.9 fl Normal 35.1-43.9 [facility] Comment on above: Performed By: #### L 100.0100, L500.4050, L500.4100, L501.9520, L501.9985 #### [facility] [address] [place], [address] WBC (Bld) [#/Vol] 7.6 10*3/uL Normal 4.4-11.0 [facility] Comment on above: Performed By: #### L 100.0100, L500.4050, L500.4100, L501.9520, L501.9985 #### [facility] [address] [place], [address] Calculated very low density lipoprotein (VLDL) cholesterol measurementOrdered By: Rogers Draper on 02-03-2025 Calculated very low density lipoprotein (VLDL) cholesterol measurement 34 mg/dL 5-40 [facility] Carbon dioxide, total [Moles /volume] in Central venous bloodOrdered By: Rogers Draper on 02-03-2025 CO2 [Moles/Vol] 26.1 mmol/L 21.0-32.0 [facility] Chloride assayOrdered By: Jose Roberto Draper on 02-03-2025 Chloride [Moles/Vol] 104 mmol/L 98-108 [facility] Comprehensive Metabolic Prof ilon 02-03-2025 Albumin [Mass/Vol] 4.2 g/dL Normal 3.4-4.8 [facility] Comment on above: Performed By: #### L 100.0100, L500.4050, L500.4100, L501.9520, L501.9985 #### [facility] [address] [place], [address] Albumin/Globulin [Mass ratio] 1.3 {ratio} Normal 0.9-2.4 [facility] Comment on above: Performed By: #### L 100.0100, L500.4050, L500.4100, L501.9520, L501.9985 #### [facility] [address] [place], [address] ALK PHOS 97 U/L Normal 40-129 [facility] Comment on above: Performed By: #### L 100.0100, L500.4050, L500.4100, L501.9520, L501.9985 #### [facility] [address] [place], [address] ALT [Catalytic activity/Vol] 26 U/L Normal <=46 [facility] Comment on above: Performed By: #### L 100.0100, L500.4050, L500.4100, L501.9520, L501.9985 #### [facility] [address] [place], [address] AST [Catalytic activity/Vol] 25 U/L Normal <=37 [facility] Comment on above: Performed By: #### L 100.0100, L500.4050, L500.4100, L501.9520, L501.9985 #### [facility] [address] [place], [address] Bilirubin [Mass/Vol] 0.38 mg/dL Normal 0.00-1.30 [facility] Comment on above: Performed By: #### L 100.0100, L500.4050, L500.4100, L501.9520, L501.9985 #### [facility] [address] [place], [address] BUN/CRE 13.5 RATIO Normal 10-20 [facility] Comment on above: Performed By: #### L 100.0100, L500.4050, L500.4100, L501.9520, L501.9985 #### [facility] [address] [place], [address] Calcium [Mass/Vol] 9.4 mg/dL Normal 7.6-11.0 [facility] Comment on above: Performed By: #### L 100.0100, L500.4050, L500.4100, L501.9520, L501.9985 #### [facility] [address] [place], [address] Chloride [Moles/Vol] 104 mmol/L Normal 98-108 [facility] Comment on above: Performed By: #### L 100.0100, L500.4050, L500.4100, L501.9520, L501.9985 #### [facility] [address] [place], [address] CO2 [Moles/Vol] 26.1 mmol/L Normal 21.0-32.0 [facility] Comment on above: Performed By: #### L 100.0100, L500.4050, L500.4100, L501.9520, L501.9985 #### [facility] [address] [place], [address] Creatinine [Mass/Vol] 0.98 mg/dL Normal 0.70-1.20 [facility] Comment on above: Performed By: #### L 100.0100, L500.4050, L500.4100, L501.9520, L501.9985 #### [facility] [address] [place], [address] GAP 10 Normal 5-15 [facility] Comment on above: Performed By: #### L 100.0100, L500.4050, L500.4100, L501.9520, L501.9985 #### [facility] [address] [place], [address] GFR/1.73 sq M.predicted among non-blacks MDRD (S/P/Bld) [Vol rate/Area] 84 mL/min/{1.73_m2} Normal >60 [facility] Comment on above: Result Comment: mL/m in/1.73m2 CKD-EPI Creatinine Equation (2020) Performed By: #### L 100.0100, L500.4050, L500.4100, L501.9520, L501.9985 #### [facility] [address] [place], [address] Globulin (S) [Mass/Vol] 3.1 g/dL Normal 2.2-4.2 [facility] Comment on above: Performed By: #### L 100.0100, L500.4050, L500.4100, L501.9520, L501.9985 #### [facility] [address] [place], [address] Glucose [Mass/Vol] 108 mg/dL High 70-99 [facility] Comment on above: Performed By: #### L 100.0100, L500.4050, L500.4100, L501.9520, L501.9985 #### [facility] [address] [place], [address] Potassium [Moles/Vol] 4.0 mmol/L Normal 3.3-5.1 [facility] Comment on above: Performed By: #### L 100.0100, L500.4050, L500.4100, L501.9520, L501.9985 #### [facility] [address] [place], [address] Sodium [Moles/Vol] 141 mmol/L Normal 133-145 [facility] Comment on above: Performed By: #### L 100.0100, L500.4050, L500.4100, L501.9520, L501.9985 #### [facility] [address] [place], [address] T PROT 7.3 g/dL Normal 5.9-8.4 [facility] Comment on above: Performed By: #### L 100.0100, L500.4050, L500.4100, L501.9520, L501.9985 #### [facility] [address] [place], [address] Urea nitrogen [Mass/Vol] 13 mg/dL Normal 4-19 [facility] Comment on above: Performed By: #### L 100.0100, L500.4050, L500.4100, L501.9520, L501.9985 #### [facility] [address] [place], [place], [id number] Eosinophil percentageOrdered By: Rogers Draper on 02-03-2025 Eosinophils/100 WBC (Bld) 5.3 % High 0-5 [facility] Erythrocyte distribution wid th ratioOrdered By: Rogers Draper on 02-03-2025 Erythrocyte distribution width (RBC) [Ratio] 13.4 % 11.6-14.6 [facility] Erythrocyte distribution wid th standard deviationOrdered By: Rogers Draper on 02-03-2025 Erythrocyte distribution width (RBC) [Ratio] 39.9 fl 35.1-43.9 [facility] Glomerular filtration rate ( GFR) estimation/1.73 sq m using serum, plasma, or whole bOrdered By: Rogers Draper on 02-03-2025 GFR/1.73 sq M.predicted among non-blacks MDRD (S/P/Bld) [Vol rate/Area] 84 mL/min/{1.73_m2} >60 [facility] Comment on above: mL/min/1.73m2 CKD-EP I Creatinine Equation (2020) Hematocrit Auto (Bld) [Volum e fraction]Ordered By: Rogers Draper on 02-03-2025 Hematocrit (Bld) [Volume fraction] 44.5 % 40-54 [facility] Hemoglobin A1con 02-03-2025 HbA1c (Bld) [Mass fraction] 7.5 % High <=5.6 [facility] Comment on above: Result Comment: Norm al < 5.7 % Prediabetic 5.7 - 6.4 % Diabetic >or= 6.5 % Please note range changes. Performed By: #### L 100.0100, L500.4050, L500.4100, L501.9520, L501.9985 #### [facility] [address] [place], [place], [id number] Hemoglobin A1c percentageOrd ered By: Rogers Draper on 02-03-2025 HbA1c (Bld) [Mass fraction] 7.5 % High <5.7 [facility] Comment on above: Normal < 5.7 % Predi abetic 5.7 - 6.4 % Diabetic >or= 6.5 % Please note range changes. Hemoglobin measurementOrdere d By: Rogers Draper on 02-03-2025 Hemoglobin (Bld) [Mass/Vol] 14.6 g/dL 13.0-16.5 [facility] Immature granulocytes/100 WB C Auto (Bld)Ordered By: Rogers Draper on 02-03-2025 Immature granulocytes/100 WBC (Bld) 0.100 % 0.0-0.9 [facility] Comment on above: IG% - Immature Granu locytes (promyelocytes, myelocytes and metamyelocytes) > 1% indicates that a LEFT SHIFT is Present. Internal Medicine Office Vis itomassiel 02-03-2025 Internal Medicine Office Visit [facility] [address] [place] [address] [place] [address] OFFICE VISIT Date of Service: 02/03/25 MR#: [id number] Acct: [id number] Name: RODRÍGUEZ BROOKS III Rep #: [id number] : 1955 Provider: PETER Troncoso Age/Sex: 69/M Location: [facility] [place] [facility] Status: Signed Intake Vital Signs 08/12/24 16:16 02/03/25 14:24 Height 6 ft 6 ft Weight: 285 lb 2 oz 289 lb BMI 38.7 39.2 BP 130/82 H 162/94 H Blood Pressure Location Lt brachial Lt brachial Position Sitting Sitting Respiration 16 18 Pulse 108 H 93 Pulse Source Monitor Monitor Temp 97.6 F L 97.8 F Temp Source Temporal Temporal Pulse Oximetry (%) 97 97 Oxygen Delivery Method room air room air Intake Visit Reasons: acute - lump on lft testicle Chief Complaint: acute - lump on left testicle Is patient in pain?: No Allergies semaglutide (From Ozempic) Adverse Reaction (Severe, Verified 02/03/25 14:25) Abd cramps/diarrhea Medications ???Medication ???Instructions ???Recorded ???Confirmed ???Type NK 02/03/25 02/03/25 History Have you fallen in the past year?: Yes (x1) Nurse's Note: pt states that about a week ago he noticed on self exam that he had a lump on his left testicle. denies pain at this time. states that if he moves a certain way he will have twinges of pain pt's blood pressure noted elevated today. 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 [facility] Medical History Type 2 diabetes mellitus Encounter for preventative adult health care examination Sleep apnea Surgical History History of orthopedic surgery History of appendectomy History of trigger finger Family History Father Non-Hodgkin lymphoma Diabetes Mother CVA (cerebral vascular accident) Social History Smoking Status: Former smoker how long ago did patient quit smokin alcohol intake: current alcohol intake frequency: holidays/special occasions only Alcohol type: beer substance use type: does not use what type of physical activity do you participate in: none HPI HPI Chief Complaint: acute - lump on left testicle Details: RODRÍGUEZ BROOKS, is a 69 M who presents to the office today for lump on left testicle. He states that last week he just sort of got up and he felt like his left testicle was sort of enlarged or like there was something beside it. He states that every once in a while there may be a slight ache but nothing really noticeable or persistent. He has not had to take any NSAIDS for the ache / discomfort. No urinary changes, discharge, or any other symptoms. He has not ever had any previous testicular issues. ROS Const Constitutional: No body ache, chills, excessive sweating, fatigue, fever(s), frequent falls, headache(s), snoring, weight change, sleep problems, abnormal sleep pattern or change in appetite Eyes Eyes: No blurry vision, change in vision, eye pain or Light sensitivity ENT ENT: No abnormal hearing, ear or mastoid pain, tinnitus, nasal congestion, headache(s), neck pain or sore throat Resp Respiratory: No cough, shortness of breath, snoring or wheezing Cardio Cardiology: No chest pain at rest, chest pain with exertion, excessive sweating, shortness of breath, dyspnea on exertion, lightheadedness, orthopnea or palpitations Gastro GI: No abdominal pain, change in bowel habits, constipation, cramping, diarrhea, nausea/dyspepsia or vomiting Genitourinary Male: No burning urination, painful urination, urinary incontinence or urinary frequency Musc Musculoskeletal: No abnormal gait, joint pain, back pain, limited range of motion, neck pain, numbness or tingling Skin Skin: No dry skin, redness, lesions, itchy eyes, rash or wounds Neuro Neurology: No abnormal gait, abnormal hearing, frequent falls, headache(s), memory loss, numbness or tingling Psych Psychiatric: No abnormal sleep pattern, No anxiety, No change in appetite, No irritability, No memory loss and No Thoughts of harming yourself/Others Endo Endocrine: No cold intolerance, excessive sweating, fatigue, flushing, heat intolerance, increased thirst/drinking, increased hunger or weight change Aller/Imm Allergy/Immunologic : No itchy eyes, seasonal allergy symptoms, hives or wheezing Wes/Lymp Hematologic/Lymphat ic: No easy bleeding, easy bruising, enlarged lymph nodes or other Exam Const General: cooperative, healthy appearing, comfortable, in distress and not well developed Nutritional Appearance: obese Orientation: alert, awake and oriented x3 Neck Carotids: no bruits Lymphatic: no lymphadenopathy noted R (more content not included)... Normal [facility] LDL calc ser/plasOrdered By: Rogers Draper on 02-03-2025 Cholesterol in LDL [Mass/Vol] 81 mg/dL [facility] Comment on above: Limzhtsswo=950-741 m g/dL & Higher Idra=565 mg/dL or greater Laboratory - Chemistry and C hemistry - challengeOrdered By: Rogers Draper on 02-03-2025 AST [Catalytic activity/Vol] 25 U/L <38 [facility] Lipid Profileon 02-03-2025 CHOL:HDL 4.10 Normal [facility] Comment on above: Performed By: #### L 100.0100, L500.4050, L500.4100, L501.9520, L501.9985 #### [facility] [place], [address] Cholesterol [Mass/Vol] 152 mg/dL Normal <=200 [facility] Comment on above: Result Comment: Chol esterol level, Desirable <200 mg/dL Borderline high cholesterol 200-239 mg/dL High cholesterol >=240 mg/dL Recommendations of the NCEP Adult Treatment Panel for the following risk-cutoff thresholds for the [place] population. Performed By: #### L 100.0100, L500.4050, L500.4100, L501.9520, L501.9985 #### [facility] [address] [place], [address] Cholesterol in HDL [Mass/Vol] 37 mg/dL Low [facility] Comment on above: Result Comment: Francine onal Cholesterol Education Program (NCEP) guidelines: <40 mg/dL: Low HDL-cholesterol (major risk factor for CHD) >= 60 mg/dL: High HDL-cholesterol (negative risk factor for CHD) HDL-cholesterol is affected by a number of factors, e.g. smoking, exercise, hormones, sex and age. Performed By: #### L 100.0100, L500.4050, L500.4100, L501.9520, L501.9985 #### [facility] [address] [place], [address] Cholesterol in LDL [Mass/Vol] 81 mg/dL Normal [facility] Comment on above: Result Comment: Bord gdvliz=367-418 mg/dL Higher Pmbn=556 mg/dL or greater Performed By: #### L 100.0100, L500.4050, L500.4100, L501.9520, L501.9985 #### [facility] [address] [place], [address] Cholesterol in VLDL [Mass/Vol] 34 mg/dL Normal 5-40 [facility] Comment on above: Performed By: #### L 100.0100, L500.4050, L500.4100, L501.9520, L501.9985 #### [facility] [address] [place], [address] Triglyceride [Mass/Vol] 171 mg/dL Normal [facility] Comment on above: Result Comment: The drugs N-Acetylcysteine and Metamizole may falsely depress this assay. Normal range: <150 mg/dL Borderline High: 150-199 mg/dL High: 200-499 mg/dL Very High: >500 mg/dL Performed By: #### L 100.0100, L500.4050, L500.4100, L501.9520, L501.9985 #### [facility] [address] [place], [address] MCV (mean corpuscular volume ) determinationOrdered By: Rogers Draper on 02-03-2025 MCV (RBC) [Entitic vol] 82.4 fL 80-94 [facility] Mean corpuscular hemoglobin (MCH) determinationOrdered By: Rogers Draper on 02-03-2025 MCH (RBC) [Entitic mass] 27.0 pg 27.0-32.0 [facility] Mean corpuscular hemoglobin concentration (MCHC) determinationOrdered By: Rogers Draper on 02-03-2025 MCHC (RBC) [Mass/Vol] 32.8 g/dL 32-36 [facility] Mean platelet volume determi nationOrdered By: Rogers Draper on 02-03-2025 Platelet mean volume (Bld) [Entitic vol] 10.6 fL 6.2-12.0 [facility] Monocyte percentageOrdered B y: Rogers Draper on 02-03-2025 Monocytes/100 WBC (Bld) 10.2 % High 0-10 [facility] Neutrophil percentageOrdered By: Rogers Draper on 02-03-2025 Neutrophils/100 WBC (Bld) 44.9 % Low 47-70 [facility] Nucleated red blood cell per centageOrdered By: Rogers Draper on 02-03-2025 Nucleated RBC/100 WBC (Bld) [Ratio] 0 % 0-5 [facility] Platelet countOrdered By: Jose Roberto Draper on 02-03-2025 Platelets (Bld) [#/Vol] 209 10*3/uL 150-450 [facility] Potassium measurement (mass/ volume)Ordered By: Rogers Draper on 02-03-2025 Potassium (Unsp spec) [Mass/Vol] 4.0 mmol/L 3.3-5.1 [facility] RBC Auto (Bld) [#/Vol]Ordere d By: Rogers Draper on 02-03-2025 RBC (Bld) [#/Vol] 5.40 10*6/uL 4.6-6.2 [facility] Screening total cholesterol/ high density lipoprotein (HDL) cholesterol ratioOrdered By: Rogers Draper on 02-03-2025 Cholesterol.total/Choles terol in HDL [Mass ratio] 4.10 {ratio} [facility] Serum creatinine measurement (mass/volume)Ordered By: Rogers Draper on 02-03-2025 Creatinine [Mass/Vol] 0.98 mg/dL 0.70-1.20 [facility] Serum globulin measurementOr dered By: Rogers Draper on 02-03-2025 Globulin (S) [Mass/Vol] 3.1 g/dL 2.2-4.2 [facility] Serum glucose measurement (m ass/volume)Ordered By: Rogers Draper on 02-03-2025 Glucose [Mass/Vol] 108 mg/dL High 70-99 [facility] Serum or plasma alanine johnson otransferase (ALT) measurementOrdered By: Rogers Draper on 02-03-2025 ALT [Catalytic activity/Vol] 26 U/L <47 [facility] Serum or plasma albumin akiko urement (mass/volume)Ordered By: Rogers Draper on 02-03-2025 Albumin [Mass/Vol] 4.2 g/dL 3.4-4.8 [facility] Serum or plasma albumin/glob ulin mass ratioOrdered By: Rogers Draper on 02-03-2025 Albumin/Globulin [Mass ratio] 1.3 {ratio} 0.9-2.4 [facility] Serum or plasma alkaline hernando sphatase measurementOrdered By: Rogers Draper on 02-03-2025 ALP [Catalytic activity/Vol] 97 U/L 40-129 [facility] Serum or plasma calcium akiko urement (mass/volume)Ordered By: Rogers Draper on 02-03-2025 Calcium [Mass/Vol] 9.4 mg/dL 7.6-11.0 [facility] Serum or plasma cholesterol in HDL measurement (mass/volume)Ordered By: Rogers Draper on 02-03-2025 Cholesterol in HDL [Mass/Vol] 37 mg/dL Low >40 [facility] Comment on above: National Cholesterol Education Program (NCEP) guidelines:<40 mg/dL: Low HDL-cholesterol (major risk factor for CHD)>= 60 mg/dL: High HDL-cholesterol (negative risk factor for CHD)HDL-cholesterol is affected by a number of factors, e.g. smoking, exercise, hormones, sex and age. Serum or plasma cholesterol measurement (mass/volume)Ordered By: Rogers Draper on 02-03-2025 Cholesterol [Mass/Vol] 152 mg/dL <201 [facility] Comment on above: Cholesterol level, D esirable <200 mg/dLBorderline high cholesterol 200-239 mg/dLHigh cholesterol >=240 mg/dLRecommendations of the NCEP Adult Treatment Panel for the following risk-cutoff thresholds for the [place] population. Serum or plasma urea nitroge n measurement (mass/volume)Ordered By: Rogers Draper on 02-03-2025 Urea nitrogen [Mass/Vol] 13 mg/dL 4-19 [facility] Sodium levelOrdered By: Shankar Draper on 02-03-2025 Sodium [Moles/Vol] 141 mmol/L 133-145 [facility] TSH DL <= 0.005 mIU/L QnOrde red By: Rogers Draper on 02-03-2025 TSH Qn 4.430 uIU/mL High 0.300-4.200 [facility] Thyroid Stim Hormone (TSH)on 02-03-2025 TSH 4.430 uIU/mL High 0.300-4.200 [facility] Comment on above: Performed By: #### L 100.0100, L500.4050, L500.4100, L501.9520, L501.9985 #### [facility] [address] [place], [place], [id number] Total proteinOrdered By: Jac Draper on 02-03-2025 Protein [Mass/Vol] 7.3 g/dL 5.9-8.4 [facility] Triglycerides measurementOrd ered By: Rogers Baron on 02-03-2025 Triglyceride [Mass/Vol] 171 mg/dL <199 [facility] Comment on above: The drugs N-Acetylcy steine and Metamizole may falsely depress this assay. Normal range: <150 mg/dLBorderline High: 150-199 mg/dLHigh: 200-499 mg/dLVery High: >500 mg/dL White blood cell (WBC) count Ordered By: Rogers Draper on 02-03-2025 WBC (Bld) [#/Vol] 7.6 10*3/uL 4.4-11.0 [facility] Internal Medicine Office Vis iton 08-12-2024 Internal Medicine Office Visit [facility] [address] [place] [address] [place] [address] OFFICE VISIT Date of Service: 08/12/24 MR#: [id number] Acct: [id number] Name: RODRÍGUEZ BROOKS III Rep #: [id number] : 1955 Provider: Dr. Pratik borrego, DO Age/Sex: 69/M Location: [facility] [place] Status: Signed Intake Vital Signs 06/16/24 14:30 08/12/24 16:16 Height 6 ft 6 ft Weight: 281 lb 6 oz 285 lb 2 oz BMI 38.1 38.7 BP 120/76 130/82 H Blood Pressure Location Lt brachial Lt brachial Position Sitting Sitting Respiration 16 16 Pulse 48 L 108 H Pulse Source Monitor Monitor Temp 97.8 F 97.6 F L Temp Source Temporal Temporal Pulse Oximetry (%) 96 97 Oxygen Delivery Method room air room air Intake Visit Reasons: 2 m fu Chief Complaint: 2m f/u [employer] Required: No Accompanied by: Self Is patient in pain?: No Allergies semaglutide (From Ozempic) Adverse Reaction (Severe, Verified 08/12/24 16:13) Abd cramps/diarrhea Medications ???Medication ???Instructions ???Recorded ???Confirmed ???Type tretinoin 0.05 % topical cream 1 applic topical QHS #45 grams 08/27/23 08/12/24 Rx (Retin-A) fluorouracil 5 % topical cream 1 applic topical BID 3 weeks #40 06/16/24 08/12/24 Rx grams Have you fallen in the past year?: No PFSH Medical History Type 2 diabetes mellitus Encounter for preventative adult health care examination Sleep apnea Surgical History History of orthopedic surgery History of appendectomy History of trigger finger Family History Father Non-Hodgkin lymphoma Diabetes Mother CVA (cerebral vascular accident) Social History Smoking Status: Former smoker how long ago did patient quit smokin alcohol intake: current alcohol intake frequency: holidays/special occasions only Alcohol type: beer substance use type: does not use what type of physical activity do you participate in: none HPI HPI Chief Complaint: 2m f/u Details: RODRÍGUEZ BROOKS, is a 69 M who presents to the office today for ROS Const Constitutional: No body ache, chills, excessive sweating, fatigue, fever(s), frequent falls, headache(s), snoring, weakness or change in appetite Eyes Eyes: No blurry vision, change in vision, eye pain or Light sensitivity ENT ENT: No abnormal hearing, ear or mastoid pain, tinnitus, nasal congestion, headache(s), neck pain or sore throat Resp Respiratory: No cough, shortness of breath, snoring or wheezing Cardio Cardiology: No chest pain at rest, chest pain with exertion, excessive sweating, dyspnea on exertion, lightheadedness, orthopnea or palpitations Gastro GI: No abdominal pain, change in bowel habits, constipation, cramping, diarrhea, nausea/dyspepsia or vomiting Genitourinary Male: No burning urination, painful urination, urinary incontinence or urinary frequency Musc Musculoskeletal: No abnormal gait, joint pain, back pain, limited range of motion, muscle weakness, neck pain or numbness Skin Skin: No dry skin, redness, lesions, itchy eyes, rash or wounds Neuro Neurology: No abnormal gait, abnormal hearing, weakness, frequent falls, headache(s), memory loss or numbness Psych Psychiatric: No anxiety, No change in appetite, No depression, No memory loss and No Thoughts of harming yourself/Others Endo Endocrine: No cold intolerance, excessive sweating, fatigue, flushing, heat intolerance, increased thirst/drinking or increased hunger Aller/Imm Allergy/Immunologic : No itchy eyes, seasonal allergy symptoms, hives or wheezing Wes/Lymp Hematologic/Lymphat ic: No easy bleeding or easy bruising Exam Const General: cooperative and healthy appearing Nutritional Appearance: overweight Orientation: oriented x3 HENNV Head: normal to inspection Eyes General: appearance normal, both eyes and all related structures Neck Neck: normal visual inspection Resp Effort Inspection: normal respiratory effort Auscultation: Bilateral: Clear to Auscultation Cardio Rate: regular rate Rhythm: regular rhythm Heart Sounds: no murmurs Musc Musculoskeletal: No joint tenderness Skin Lesions: no lesions (Complete resolution of the previous lesion.) Neuro General: patient oriented x3 Extrem General: other (Hammertoes of both feet causing some pain in the ball of the foot.) Psych Appearance: grossly normal Judgment: judgment good Coding Level of Care Code Off vis,est,level 3 Diagnoses Basal cell carcinoma (BCC) of back C44.519 Hammer toes of both feet M20.41; M20.42 Assessment and Plan Assessment and Plan (1) Basal cell carcinoma (BCC) of back: Status: Acute Plan: (more content not included)... Normal [facility] 08-07-2024 [facility] Office Visit ([facility]) ---- RODRÍGUEZ BROOKS ([id number]) 1955 M Date Time Provider Department 08/07/24 1:40 PM ERWIN CHOW JR [facility] During your visit today, we recorded the following information about you: Temperature Pulse Respiration Blood pressure 97.4 degrees 61/minute 18/minute 147/96 Erwin Chow Jr., [employer] 08/07/2024 3:07 PM Signed Rodríguez Brooks is a 69 year old male who presents with Laceration (Fell off step stool 30 min ago at home left posterior forearm 5.2cm area 1 cm surface area, left wrist pain) 69-year-old male presents today with complaint of cut to his left lateral forearm and left wrist pain. Patient related he was at home on a stepstool when he began to lose his balance he tried to step off and his foot caught the side of the stepstool and he fell down landing on his left knee, left wrist and forearm. He thinks he cut his wrist on an object that was laying on the floor. Patient states the knee pain is very slight and does not want it looked at. Denies hitting his head or any loss of consciousness. The history is provided by the patient. Laceration History reviewed. No pertinent past medical history. There is no problem list on file for this patient. No current outpatient medications on file. No current facility-administer ed medications for this visit. Social History Tobacco Use Smoking status: Never Smokeless tobacco: Never Vaping Use Vaping status: Never Used Substance Use Topics Alcohol use: Not Currently Drug use: Never Alcohol Use: Not Currently Tobacco Use: Never History reviewed. No pertinent family history. Review of Systems Constitutional: Negative for fever. HENT: Negative for congestion and sore throat. Respiratory: Negative for cough. Cardiovascular: Negative for chest pain. Gastrointestinal: Negative for nausea and vomiting. Skin: Negative for rash. Neurological: Negative for headaches. BP 147/96 Pulse 61 Temp 97.4 Resp 18 SpO2 96% Physical Exam Vitals (Blood pressure is elevated) reviewed. Constitutional: Appearance: Normal appearance. HENT: Head: Normocephalic and atraumatic. Mouth/Throat: Mouth: Mucous membranes are moist. Pharynx: Oropharynx is clear. Eyes: Conjunctiva/sclera: Conjunctivae normal. Cardiovascular: Rate and Rhythm: Normal rate and regular rhythm. Heart sounds: Normal heart sounds. Pulmonary: Effort: Pulmonary effort is normal. Breath sounds: Normal breath sounds. Abdominal: General: Bowel sounds are normal. Palpations: Abdomen is soft. Skin: General: Skin is warm. Comments: There are 2 small areas of laceration/abrasion s in the left posterior lateral forearm. The superior aspect of the forearm is the longest one the edges are well-maintained at the distal area however there is some opening at the proximal aspect. The other small abrasion is almost perpendicular to the laceration and does not need treatment. Neurological: Mental Status: He is alert. Left wrist x-ray: No acute fracture noted. Awaiting radiology report. Procedure Steri-Strip application. Patient gave verbal approval for procedure. I discussed scar tissue formation as a result of procedure with patient patient decided that he would prefer Steri-Strips over suturing. Wound was cleaned with soap and water, area dried, Steri-Strips applied. Patient given instructions on care and bandage applied over laceration. Patient does not have tetanus immunization record in the system. He states he has an appointment next week with his primary care physician will discuss how long ago his last tetanus was. Patient declined tetanus shot at this visit. ASSESSMENT/PLAN: 1. Abrasion of left forearm, initial encounter - ICD9: 913.0, ICD10: S50.812A (primary diagnosis) 2. Wrist pain, left - ICD9: 719.43, ICD10: M25.532 - XR WRIST GENERAL 3V PA/LAT/OBL LEFT 3. Wrist sprain, left, initial encounter - ICD9: 842.00, ICD10: S63.502A -Patient presented secondary to a fall resulting in a laceration left wrist pain. -Acute fracture noted on x-rays and patient declined left wrist brace. -Strip applied to the lacerated area. -Given instructions. -Follow-up with PCP, keep PC appointment this next week and discuss tetanus immunization history. Go to emergency room if any severe symptoms occur. -Wrist pain continues to hurt I recommend follow-up for further evaluation. Stated understanding agreement current plan of care. Erwin Chow Jr, BIRD TRAPPER.Erwin Puckett Jr., BIRD TRAPPER.SAIGE 08/07/2024 2:50 PM Signed Monitor laceration area for signs of infection these include redness, warmth, swelling, pain, and pus. Follow-up with your primary care physician to see when your last tetanus shot was given. If within 5 years I recommend an update. [id number] medications as needed. Keep the laceration dry for the next 24 hours after (more content not included)... [facility] XR WRIST 3V PA/LAT/OBL LTon 08-07-2024 XR WRIST 3V PA/LAT/OBL LT * * *Final Report* * * DATE OF EXAM: Aug 07 2024 2:44PM RMX [id number] - XR WRIST 3V PA/LAT/OBL LT / PROCEDURE REASON: Wrist pain, left * * * * Physician Interpretation * * * * XR WRIST 3V PA/LAT/OBL LT Ordering Physician: ERWIN CHOW 08/07/2024 2:44 PM LEFT WRIST Clinical Statement: Injury with pain FINDINGS: 3 images of the left wrist were obtained. There were no prior studies available for comparison. The carpal bones are intact. There are no acute fractures. IMPRESSION: No acute fractures. Dimension Quarry Supervisor: PSCShirin Transcribe Date/Time: Aug 09 2024 1:02P Dictated by : VALERY BUTTS MD This examination was interpreted and the report reviewed and electronically signed by: VALERY BUTTS MD on Aug 09 2024 1:05PM EST [id number] Normal [facility] Internal Medicine Office Vis iton 06-16-2024 Internal Medicine Office Visit [facility] [place] [address] OFFICE VISIT Date of Service: 06/16/24 MR#: [id number] Acct: [id number] Name: RODRÍGUEZ BROOKS III Rep #: [id number] : 1955 Provider: Dr. Pratik borrego, DO Age/Sex: 69/M Location: [facility] [place].[facility] Status: Signed Intake Vital Signs 08/27/23 14:27 06/16/24 14:30 Height 6 ft 6 ft Weight: 290 lb 281 lb 6 oz BMI 39.3 38.1 BP 138/82 H 120/76 Blood Pressure Location Lt brachial Lt brachial Position Sitting Sitting Respiration 16 16 Pulse 72 48 L Pulse Source Monitor Monitor Temp 97.6 F L 97.8 F Temp Source Temporal Temporal Pulse Oximetry (%) 96 96 Oxygen Delivery Method room air room air Intake Visit Reasons: skin cancer areas bothering him Chief Complaint: SPOT ON BACK Manager Sales And Marketing Required: No Accompanied by: Self Is patient in pain?: No Allergies semaglutide (From Ozempic) Adverse Reaction (Severe, Verified 06/16/24 14:29) Abd cramps/diarrhea Medications ???Medication ???Instructions ???Recorded ???Confirmed ???Type tretinoin 0.05 % topical cream 1 applic topical QHS #45 grams 08/27/23 06/16/24 Rx (Retin-A) fluorouracil 5 % topical cream 1 applic topical BID 3 weeks #40 06/16/24 06/16/24 Rx grams Have you fallen in the past year?: No PFSH Medical History Type 2 diabetes mellitus Encounter for preventative adult health care examination Sleep apnea Surgical History History of orthopedic surgery History of appendectomy History of trigger finger Family History Father Non-Hodgkin lymphoma Diabetes Mother CVA (cerebral vascular accident) Social History Smoking Status: Former smoker how long ago did patient quit smokin alcohol intake: current alcohol intake frequency: holidays/special occasions only Alcohol type: beer substance use type: does not use what type of physical activity do you participate in: none HPI HPI Chief Complaint: SPOT ON BACK Details: RODRÍGUEZ BROOKS, is a 69 M who presents to the office today for recheck and a spot in the back of the lesion that was removed about a year ago. He says it feels itchy but it has not really bled. ROS Const Constitutional: No body ache, chills, excessive sweating, fatigue, fever(s), frequent falls, headache(s), snoring, weakness or change in appetite Eyes Eyes: No blurry vision, change in vision, eye pain or Light sensitivity ENT ENT: No abnormal hearing, ear or mastoid pain, tinnitus, nasal congestion, headache(s), neck pain or sore throat Resp Respiratory: No cough, shortness of breath, snoring or wheezing Cardio Cardiology: No chest pain at rest, chest pain with exertion, excessive sweating, dyspnea on exertion, lightheadedness, orthopnea or palpitations Gastro GI: No abdominal pain, change in bowel habits, constipation, cramping, diarrhea, nausea/dyspepsia or vomiting Genitourinary Male: No burning urination, painful urination, urinary incontinence or urinary frequency Musc Musculoskeletal: No abnormal gait, joint pain, back pain, limited range of motion, muscle weakness, neck pain or numbness Skin Skin: No dry skin, redness, lesions, itchy eyes, rash or wounds Neuro Neurology: No abnormal gait, abnormal hearing, weakness, frequent falls, headache(s), memory loss or numbness Psych Psychiatric: No anxiety, No change in appetite, No depression, No memory loss and No Thoughts of harming yourself/Others Endo Endocrine: No cold intolerance, excessive sweating, fatigue, flushing, heat intolerance, increased thirst/drinking or increased hunger Aller/Imm Allergy/Immunologic : No itchy eyes, seasonal allergy symptoms, hives or wheezing Wes/Lymp Hematologic/Lymphat ic: No easy bleeding or easy bruising Exam Const General: cooperative and healthy appearing Nutritional Appearance: overweight Orientation: oriented x3 HENMT Head: normal to inspection Eyes General: appearance normal, both eyes and all related structures Neck Neck: normal visual inspection Resp Effort Inspection: normal respiratory effort Auscultation: Bilateral: Clear to Auscultation Cardio Rate: regular rate Rhythm: regular rhythm Heart Sounds: no murmurs Musc Musculoskeletal: No joint tenderness Skin Lesions: lesion noted (2 mm reoccurrence of a basal cell of the superior area of the prior excisio) Neuro General: patient oriented x3 Extrem General: normal to inspection Psych Appearance: grossly normal Judgment: judgment good Coding Level of Care Code Off vis,est,level 3 Diagnoses Basal cell carcinoma (BCC) of back C44.519 Assessmen (more content not included)... Normal [facility] Basophil percentageOrdered B y: Pratik Brown on 08-27-2023 Bilirubin [Mass/Vol] 0.50 mg/dL 0.20-1.00 [facility] Comment on above: For patients on eltr ombopag therapy, use of Dimension Taylor TBIL is not recommended. Chloride [Moles/Vol] 108 mmol/L 98-107 [facility] Cholesterol [Mass/Vol] 158 mg/dL <200 [facility] Comment on above: <200 mg/dL Desirable 200-240 mg/dL Borderline >240 mg/dL High Risk Glucose [Mass/Vol] 99 mg/dL 74-106 [facility] Potassium [Moles/Vol] 4.1 mmol/L 3.5-5.1 [facility] Protein [Mass/Vol] 7.7 g/dL 6.4-8.2 [facility] Sodium [Moles/Vol] 140 mmol/L 136-145 [facility] Triglyceride [Mass/Vol] 213 mg/dL <199 [facility] Comment on above: The drugs N-Acetylcy steine and Metamizole may falsely depress this assay.Serum Triglycerides Reference Interval Normal <150 mg/dL Borderline high 150 - 199 mg/dL High 200 - 499 mg/dL Very High > or = 500 mg/dL Laboratory - Chemistry and C hemistry - challengeOrdered By: Pratik Toledo on 08-27-2023 ALP [Catalytic activity/Vol] 90 U/L 45-117 [facility] ALT [Catalytic activity/Vol] 47 U/L 16-61 [facility] CO2 [Moles/Vol] 30.0 mmol/L 21.0-32.0 [facility] Globulin (S) [Mass/Vol] 3.8 g/dL 2.2-4.2 [facility] Urea nitrogen/Creatinine [Mass ratio] 13.9 mg/mg 10-20 [facility] No Panel InformationOrdered By: Pratik Toledo on 08-27-2023 Estimated GFR (MDRD) Amer 95 mL/min >60 [facility] Comment on above: GFR Calc Estimated GFR (MDRD) Non-Af Amer 78 mL/min >60 [facility] Comment on above: Non- GFR Calc Serum or plasma albumin akiko urement (mass/volume)Ordered By: Pratik Toledo on 08-27-2023 Albumin [Mass/Vol] 3.9 g/dL 3.2-5.0 [facility] Serum or plasma albumin/glob ulin mass ratioOrdered By: Pratik Toledo on 08-27-2023 Albumin/Globulin [Mass ratio] 1.0 {ratio} 0.9-2.4 [facility] Serum or plasma calcium akiko urement (mass/volume)Ordered By: Pratik Toledo on 08-27-2023 Calcium [Mass/Vol] 8.9 mg/dL 8.5-10.1 [facility] Serum or plasma cholesterol in HDL measurement (mass/volume)Ordered By: Pratik Toledo on 08-27-2023 Cholesterol in HDL [Mass/Vol] 41 mg/dL >40 [facility] Comment on above: The drugs N-Acetylcy steine and Metamizole may falsely depress this assay. Reference Range HDL <40 mg/dL Low HDL Cholesterol HDL >or= 60 mg/dL High HDL Cholesterol Serum or plasma cholesterol in VLDL measurement (mass/volume)Ordered By: Pratik Toledo on 08-27-2023 Cholesterol in VLDL [Mass/Vol] 43 mg/dL 5-40 [facility] Serum or plasma creatinine m easurement (mass/volume)Ordered By: Pratik Toledo on 08-27-2023 Creatinine [Mass/Vol] 1.01 mg/dL 0.70-1.30 [facility] Comment on above: The validity of the calculated GFR & GFRAA in patients over 70 years has not been determined. Clinical correlation is essential. Serum or plasma low density lipoprotein (LDL) cholesterol measurement (mass/volume)Ordered By: Pratik Toledo on 08-27-2023 Cholesterol in LDL [Mass/Vol] 74 mg/dL 0-130 [facility] Serum or plasma urea nitroge n measurement (mass/volume)Ordered By: Pratik Toledo on 08-27-2023 Urea nitrogen [Mass/Vol] 14 mg/dL 7-18 [facility] Thin prep Papanicolaou smear with manual screeningOrdered By: Pratik Toledo on 08-27-2023 Thin prep Papanicolaou smear with manual screening 29 U/L 15-37 [facility] Thin prep Papanicolaou smear with manual screening 2 5-[address] [facility] [address] HEAD OR BRAIN W/O CONTRAS Ton 07-20-2023 CT HEAD OR BRAIN W/O CONTRAST ORIGINAL EXAMINATION: CT OF THE HEAD WITHOUT CONTRAST 07/20/2023 4:54 am TECHNIQUE: CT of the head was performed without the administration of intravenous contrast. Automated exposure control, iterative reconstruction, and/or weight based adjustment of the mA/kV was utilized to reduce the radiation dose to as low as reasonably achievable. COMPARISON: None. HISTORY: ORDERING SYSTEM PROVIDED HISTORY: Reason for Exam: Left ear pain that started at 2 am this morning; woke him up again around 3 am. Pain is stabbing and comes and goes. sudden left inner ear/head pain FINDINGS: BRAIN/VENTRICLES: There is no acute intracranial hemorrhage, mass effect or midline shift. No abnormal extra-axial fluid collection. The jiang-white differentiation is maintained without evidence of an acute infarct. There is no evidence of hydrocephalus. ORBITS: The visualized portion of the orbits demonstrate no acute abnormality. SINUSES: Visualized paranasal sinuses are remarkable only for mild mucosal thickening of the right frontal sinus and a few anterior ethmoid air cells. Bilateral mastoid air cells are well aerated. No evidence of temporal bone abnormality. SOFT TISSUES/SKULL: No acute abnormality of the visualized skull or soft tissues. IMPRESSION: No acute intracranial abnormality. Interpreted by: Marino Colby MD Preliminary Report By: Marino Colby MD Electronically signed By Marino Colby MD Dictated Date: 07/20/2023 4:57:00 AM Prelim Date: 07/20/2023 4:58:43 AM Sign Date: 07/20/2023 4:58:43 AM Ordering Provider: GINNA AYALA [facility] ([place]) Laboratory - Hematology and Cell countson 07-11-2023 HbA1c (Bld) [Mass fraction] 6.7 % 4.2-6.3 [facility] Absolute lymphocyte counton 07-04-2022 Lymphocytes Auto (Unsp spec) [#/Vol] 3.15 10*3/uL 0.83-4.51 [facility] Work Phone: Basophil percentageon 2021 Basophils/100 WBC (Bld) 0.9 % 0-1 [facility] Work Phone: Bilirubin [Mass/Vol] 0.60 mg/dL 0.20-1.00 [facility] Work Phone: Comment on above: For patients on eltr ombopag therapy, use of Dimension Taylor TBIL is not recommended. Chloride [Moles/Vol] 108 mmol/L 98-107 [facility] Work Phone: Cholesterol [Mass/Vol] 155 mg/dL <200 [facility] Work Phone: Comment on above: <200 mg/dL Desirable 200-240 mg/dL Borderline >240 mg/dL High Risk Eosinophils/100 WBC (Bld) 5.1 % 0-5 [facility] Work Phone: Glucose [Mass/Vol] 88 mg/dL 74-106 [facility] Work Phone: Neutrophils (Bld) [#/Vol] 3.9 10*3/uL 2.0-7.7 [facility] Work Phone: Neutrophils/100 WBC (Bld) 46.4 % 47-70 [facility] Work Phone: Potassium [Moles/Vol] 4.4 mmol/L 3.5-5.1 [facility] Work Phone: Protein [Mass/Vol] 7.4 g/dL 6.4-8.2 [facility] Work Phone: Sodium [Moles/Vol] 142 mmol/L 136-145 [facility] Work Phone: Triglyceride [Mass/Vol] 158 mg/dL <199 [facility] Work Phone: Comment on above: The drugs N-Acetylcy steine and Metamizole may falsely depress this assay.Serum Triglycerides Reference Interval Normal <150 mg/dL Borderline high 150 - 199 mg/dL High 200 - 499 mg/dL Very High > or = 500 mg/dL WBC (Bld) [#/Vol] 8.5 10*3/uL 4.4-11.0 [facility] Work Phone: Blood erythrocytes count (nu mber/volume)on 07-04-2022 RBC (Bld) [#/Vol] 5.50 10*6/uL 4.6-6.2 [facility] Work Phone: Blood hemoglobin measurement (mass/volume)on 07-04-2022 Hemoglobin (Bld) [Mass/Vol] 15.3 g/dL 13.0-16.5 [facility] Work Phone: Blood lymphocytes/100 leukoc yteson 07-04-2022 Lymphocytes/100 WBC (Bld) 37.1 % 19-41 [facility] Work Phone: Blood monocytes/100 leukocyt eson 07-04-2022 Monocytes/100 WBC (Bld) 10.3 % 0-10 [facility] Work Phone: Blood platelet mean volumeon 07-04-2022 Platelet mean volume (Bld) [Entitic vol] 10.4 fL 6.2-12.0 [facility] Work Phone: Determination of erythrocyte mean corpuscular volume (MCV)on 07-04-2022 MCV (RBC) [Entitic vol] 85.6 fL 80-94 [facility] Work Phone: Hematocrit Auto (Bld) [Volum e fraction]on 07-04-2022 Hematocrit (Bld) [Volume fraction] 47.1 % 40-54 [facility] Work Phone: Laboratory - Chemistry and C hemistry - challengeon 07-04-2022 ALP [Catalytic activity/Vol] 87 U/L 45-117 [facility] Work Phone: ALT [Catalytic activity/Vol] 46 U/L 16-61 [facility] Work Phone: CO2 [Moles/Vol] 30.0 mmol/L 21.0-32.0 [facility] Work Phone: Globulin (S) [Mass/Vol] 3.6 g/dL 2.2-4.2 [facility] Work Phone: Urea nitrogen/Creatinine [Mass ratio] 13.5 mg/mg 10-20 [facility] Work Phone: Laboratory - Hematology and Cell countson 07-04-2022 Erythrocyte distribution width (RBC) [Entitic vol] 41.4 fL 35.1-43.9 [facility] Work Phone: Erythrocyte distribution width (RBC) [Ratio] 13.3 % 11.6-14.6 [facility] Work Phone: Immature granulocytes/100 WBC (Bld) 0.200 % 0.0-0.9 [facility] Work Phone: Comment on above: IG% - Immature Granu locytes (promyelocytes, myelocytes and metamyelocytes) > 1% indicates that a LEFT SHIFT is Present. MCH (RBC) [Entitic mass] 27.8 pg 27.0-32.0 [facility] Work Phone: Nucleated RBC/100 WBC (Bld) [Ratio] 0 % 0-5 [facility] Work Phone: MCHC Auto (RBC) [Mass/Vol]on 07-04-2022 MCHC (RBC) [Mass/Vol] 32.5 g/dL 32-36 [facility] Work Phone: No Panel Informationon 07-04 Estimated GFR (MDRD) Amer 85 mL/min >60 [facility] Work Phone: Comment on above: GFR Calc Estimated GFR (MDRD) Non-Af Amer 70 mL/min >60 [facility] Work Phone: Comment on above: Non- GFR Calc Prostate Specific Antigen Screen 2.00 ng/mL 0.00-4.00 [facility] Work Phone: Comment on above: This test was perfor med using the TPSA assay method for [employer] chemistry system. Values obtained with differentassay methods cannot be used interchangably.When changing PSA assays in the course of monitoring apatient, additional sequential testing should be carriedout to confirm baseline values. Thyroid Stimulating Hormone (TSH) 4.27 uIU/mL 0.358-3.74 [facility] Work Phone: Platelets bldon 07-04-2022 Platelets (Bld) [#/Vol] 218 10*3/uL 150-450 [facility] Work Phone: Serum or plasma albumin akiko urement (mass/volume)on 07-04-2022 Albumin [Mass/Vol] 3.8 g/dL 3.2-5.0 [facility] Work Phone: Serum or plasma albumin/glob ulin mass ratioon 07-04-2022 Albumin/Globulin [Mass ratio] 1.1 {ratio} 0.9-2.4 [facility] Work Phone: Serum or plasma calcium akiko urement (mass/volume)on 07-04-2022 Calcium [Mass/Vol] 9.5 mg/dL 8.5-10.1 [facility] Work Phone: Serum or plasma cholesterol in HDL measurement (mass/volume)on 07-04-2022 Cholesterol in HDL [Mass/Vol] 39 mg/dL >40 [facility] Work Phone: Comment on above: The drugs N-Acetylcy steine and Metamizole may falsely depress this assay. Reference Range HDL <40 mg/dL Low HDL Cholesterol HDL >or= 60 mg/dL High HDL Cholesterol Serum or plasma cholesterol in VLDL measurement (mass/volume)on 07-04-2022 Cholesterol in VLDL [Mass/Vol] 32 mg/dL 5-40 [facility] Work Phone: Serum or plasma creatinine m easurement (mass/volume)on 07-04-2022 Creatinine [Mass/Vol] 1.11 mg/dL 0.70-1.30 [facility] Work Phone: Comment on above: The validity of the calculated GFR & GFRAA in patients over 70 years has not been determined. Clinical correlation is essential. Serum or plasma low density lipoprotein (LDL) cholesterol measurement (mass/volume)on 07-04-2022 Cholesterol in LDL [Mass/Vol] 84 mg/dL 0-130 [facility] Work Phone: Serum or plasma urea nitroge n measurement (mass/volume)on 07-04-2022 Urea nitrogen [Mass/Vol] 15 mg/dL 7-18 [facility] Work Phone: Thin prep Papanicolaou smear with manual screeningon 07-04-2022 Thin prep Papanicolaou smear with manual screening 27 U/L 15-37 [facility] Work Phone: Thin prep Papanicolaou smear with manual screening 4 5-15 [facility] Work Phone: Whole blood hemoglobin A1c/t otal hemoglobin ratio (mass fraction)on 07-04-2022 HbA1c (Bld) [Mass fraction] 6.5 % 3.8-5.6 [facility] Work Phone: Comment on above: Normal < 5.7 % Predi abetic 5.7 - 6.4 % Diabetic >or= 6.5 % Please note range changes. Vital Signs Date Time Vital Sign Value Performing Clinician Facility 02-17-2025 10:11-0400 Body height 182.[address] Pratik Toledo DO Work Phone: [facility] 02-17-2025 10:11-0400 Body mass index (BMI) [Ratio] 39.2 kg/m2 Dr. Pratik Toledo DO Work Phone: [facility] 02-17-2025 10:11-0400 Body temperature 98.2 [degF] Dr. Pratik Toledo DO Work Phone: [facility] 02-17-2025 10:11-0400 Body weight 131.[address] Pratik Toledo DO Work Phone: [facility] 02-17-2025 10:11-0400 Diastolic blood pressure 82 mm[Hg] Dr. Pratik Toledo DO Work Phone: [facility] 02-17-2025 10:11-0400 Heart rate 67 /min Dr. Pratik Toledo DO Work Phone: [facility] 02-17-2025 10:11-0400 Respiratory rate 18 /min Dr. Pratik Toledo DO Work Phone: [facility] 02-17-2025 10:11-0400 SaO2% (BldA) [Mass fraction] 97 % Dr. Pratik Toledo DO Work Phone: [facility] 02-17-2025 10:11-0400 Systolic blood pressure 160 mm[Hg] Dr. Pratik Toledo DO Work Phone: [facility] 02-03-2025 14:24-0400 Body height 182.[address] Pratik Toledo DO Work Phone: [facility] 02-03-2025 14:24-0400 Body mass index (BMI) [Ratio] 39.2 kg/m2 Dr. Pratik Toledo DO Work Phone: [facility] 02-03-2025 14:24-0400 Body temperature 97.8 [degF] Dr. Pratik Toledo DO Work Phone: [facility] 02-03-2025 14:24-0400 Body weight 131.[address] Pratik Toledo DO Work Phone: [facility] 02-03-2025 14:24-0400 Diastolic blood pressure 94 mm[Hg] Dr. Pratik Toledo DO Work Phone: [facility] 02-03-2025 14:24-0400 Heart rate 93 /min Dr. Pratik Toledo DO Work Phone: [facility] 02-03-2025 14:24-0400 Respiratory rate 18 /min Dr. Pratik Toledo DO Work Phone: [facility] 02-03-2025 14:24-0400 SaO2% (BldA) [Mass fraction] 97 % Dr. Pratik Toledo DO Work Phone: [facility] 02-03-2025 14:24-0400 Systolic blood pressure 162 mm[Hg] Dr. Pratik Toledo DO Work Phone: [facility] 08-07-2024 13:49-0500 Body temperature 97.39 [degF] Erwin Chow Jr., BIRD TRAPPER.SUPERVISOR [employer]ACTOR [employer]ING Work Phone: [facility] 08-07-2024 13:49-0500 Diastolic blood pressure 96 mm[Hg] Erwin Chow Jr., BIRD TRAPPER.SUPERVISOR [employer]ING Work Phone: [facility] 08-07-2024 13:49-0500 Heart rate 61 /min Erwin Chow Jr., BIRD TRAPPER.SUPERVISOR [employer] Work Phone: [facility] 08-07-2024 13:49-0500 Respiratory rate 18 /min Erwin Chow Jr., BIRD TRAPPER.SUPERVISOR REACTOR FUELING Work Phone: [facility] 08-07-2024 13:49-0500 SaO2% (BldA) [Mass fraction] 96 % Erwin Chow Jr., BIRD TRAPPER.SUPERVISOR REACTOR FUELING Work Phone: [facility] 08-07-2024 13:49-0500 Systolic blood pressure 147 mm[Hg] Erwin Chow Jr., BIRD TRAPPER.SUPERVISOR REACTOR FUELING Work Phone: [facility] 08-27-2023 14:27-0500 Body height 182.[address] Pratik Toledo Work Phone: [facility] 08-27-2023 14:27-0500 Body mass index (BMI) [Ratio] 39.3 kg/m2 Dr. Pratik Toledo Work Phone: [facility] 08-27-2023 14:27-0500 Body temperature 97.6 [degF] Dr. Pratik Toledo Work Phone: [facility] 08-27-2023 14:27-0500 Body weight 131.[address] Pratik Toledo Work Phone: [facility] 08-27-2023 14:27-0500 Diastolic blood pressure 82 mm[Hg] Dr. Pratik Toledo Work Phone: [facility] 08-27-2023 14:27-0500 Heart rate 72 /min Dr. Pratik Toledo Work Phone: [facility] 08-27-2023 14:27-0500 Respiratory rate 16 /min Dr. Pratik Toledo Work Phone: [facility] 08-27-2023 14:27-0500 SaO2% (BldA) [Mass fraction] 96 % Dr. Pratik Toledo Work Phone: [facility] 08-27-2023 14:27-0500 Systolic blood pressure 138 mm[Hg] Dr. Pratik Toledo Work Phone: [facility] 07-20-2023 04:18-0400 Body height 182.9 cm GINNA AYALA DO [facility] 07-20-2023 04:18-0400 Body temperature 98.06 [degF] GINNA AYALA DO [facility] 07-20-2023 04:18-0400 Body weight 129.5 kg GINNA AYALA DO [facility] 07-20-2023 04:18-0400 Diastolic Blood Pressure Non-Invasive 83 1 GINNA AYALA DO [facility] 07-20-2023 04:18-0400 Heart rate 87 /min GINNA AYALA DO [facility] 07-20-2023 04:18-0400 Respiratory rate 16 /min GINNA AYALA DO [facility] 07-20-2023 04:18-0400 Systolic Blood Pressure Non-Invasive 149 1 GINNA AYALA DO [facility] 07-11-2023 14:34-0400 Body mass index (BMI) [Ratio] 39.4 kg/m2 Dr. Pratik Toledo Work Phone: [facility] 07-11-2023 14:34-0400 Body temperature 98.2 [degF] Dr. Pratik Toledo Work Phone: [facility] 07-11-2023 14:34-0400 Body weight 131.[address] Pratik Toledo Work Phone: [facility] 07-11-2023 14:34-0400 Diastolic blood pressure 82 mm[Hg] Dr. Pratik Toledo Work Phone: [facility] 07-11-2023 14:34-0400 Heart rate 52 /min Dr. Pratik Toledo Work Phone: [facility] 07-11-2023 14:34-0400 Respiratory rate 16 /min Dr. Pratik Toledo Work Phone: [facility] 07-11-2023 14:34-0400 SaO2% (BldA) [Mass fraction] 96 % Dr. Pratik Toledo Work Phone: [facility] 07-11-2023 14:34-0400 Systolic blood pressure 142 mm[Hg] Dr. Pratik Toledo Work Phone: [facility] 07-04-2022 08:16-0400 Body height 182.[address] Pratik Toledo Work Phone: [facility] Work Phone: 07-04-2022 08:16-0400 Body mass index (BMI) [Ratio] 39.5 kg/m2 Dr. Pratik Toledo Work Phone: [facility] Work Phone: 07-04-2022 08:16-0400 Body temperature 97.1 [degF] Dr. Pratik Toledo Work Phone: [facility] Work Phone: 07-04-2022 08:16-0400 Body weight 132.[address] Pratik Toledo Work Phone: [facility] Work Phone: 07-04-2022 08:16-0400 Diastolic blood pressure 88 mm[Hg] Dr. Pratik Toledo Work Phone: [facility] Work Phone: 07-04-2022 08:16-0400 Heart rate 60 /min Dr. Pratik Toledo Work Phone: [facility] Work Phone: 07-04-2022 08:16-0400 Respiratory rate 16 /min Dr. Pratik Toledo Work Phone: [facility] Work Phone: 07-04-2022 08:16-0400 SaO2% (BldA) [Mass fraction] 96 % Dr. Pratik Toledo Work Phone: [facility] Work Phone: 07-04-2022 08:16-0400 Systolic blood pressure 142 mm[Hg] Dr. Pratik Toledo Work Phone: [facility] Work Phone: Encounters Encounter Date Encounter Type Care Provider Facility Start: 02-17-2025 End: 02-17-[address] Pratik Hudson DO -[facility] Work Phone: Start: 02-17-2025 End: 02-17-[address] Pratik Toledo DO Work Phone: [facility] Work Phone: Start: 02-10-2025 End: 02-10-[address] Pratik Toledo DO Work Phone: [facility] Work Phone: Start: 02-10-2025 End: 02-10-2025 Patient encounter procedure Rogers GREEN -[facility] Work Phone: Start: 02-10-2025 End: 02-10-2025 ambulatory Pratik Toledo Facility:[facility] Start: 02-03-2025 End: 02-03-2025 Patient encounter procedure Rgoers GREEN -[facility] Work Phone: Start: 02-03-2025 End: 02-03-[address] Pratik Toledo DO Work Phone: [facility] Work Phone: Start: 02-03-2025 End: 02-03-2025 ambulatory Pratik Toledo Facility:[facility] Start: 08-12-2024 End: 08-12-2024 ambulatory Pratik Toledo Facility:[facility] Start: 08-07-2024 End: 08-07-2024 Subsequent hospital visit by physician Roderick Solorzano Work Phone: [facility] Comment on above: Wrist pain, left [M2 5.532] Start: 08-07-2024 End: 08-07-2024 ambulatory PRATIK TOLEDO Facility:[id number] Start: 08-07-2024 End: 08-07-2024 Patient encounter procedure Erwin Chow APRN.SUPERVISOR REACTOR FUELING Work Phone: [facility] Comment on above: Abrasion of left for earm, initial encounter (Primary Dx); Wrist pain, left; Wrist sprain, left, initial encounter Start: 06-16-2024 End: 06-16-2024 ambulatory Pratik Toledo Facility:[facility] Start: 08-27-2023 End: 08-27-[address] Pratik Toledo Work Phone: [facility] Work Phone: Start: 08-27-2023 End: 08-27-[address] Pratik Toledo Work Phone: [facility] Work Phone: Start: 07-20-2023 End: 07-20-2023 Emergency department patient visit GINNA AYALA DO Facility:[facility] Start: 07-20-2023 End: 07-20-2023 Emergency department patient visit GINNA AYALA DO [facility] Start: 07-16-2023 End: 07-16-[address] Pratik Toledo Work Phone: [facility] Work Phone: Start: 07-11-2023 End: 07-11-[address] Pratik Toledo Work Phone: [facility] Work Phone: Start: 07-04-2022 End: 07-04-[address] Pratik Toledo Work Phone: [facility] Work Phone: Start: 07-04-2022 End: 07-04-[address] Pratik Toledo Work Phone: [facility] [place] Start: 07-04-[address] Pratik Toledo Work Phone: [facility] Start: 07-04-2022 End: 07-04-2022 Encounter for general adult medical examination without abnormal findings Dr. Pratik Toledo Work Phone: [facility] Start: 07-04-2022 End: 07-04-[address] Pratik Toledo Work Phone: [facility] Start: 11-03-2020 Patient encounter procedure Sean Loyola MD Work Phone: [facility] Start: 11-03-2020 Progress Note Sean Loyola MD Work Phone: [facility] Start: 07-08-[address] Pratik Toledo Work Phone: [facility] Procedures Date Procedure Procedure Detail Performing Clinician Start: 02-10-2025 Ultrasound of scrotu m with Doppler and color flow imaging Dr. Pratik Toledo DO Work Phone: Plan of Treatment Date Care Activity Detail Author Start: 2031 RSV Vaccine (1 - 1-d ose 75+ series) RSV Vaccine (1 - 1-dose 75+ series) [facility] Start: 02-10-2025 Ultrasound of scrotu m with Doppler and color flow imaging Testicular with Arterial Flow [facility] Start: 02-10-2025 US Unspecified body region [facility] Start: 02-03-2025 CBC W Auto Different ial panel - Blood [facility] Start: 02-03-2025 Comprehensive metabo lic 2000 panel - Serum or Plasma [facility] Start: 02-03-2025 Hemoglobin A1c/Hemoglobin.total in Blood [facility] Start: 02-03-2025 Lipid 1996 panel - S alta or Plasma [facility] Start: 02-03-2025 Thyroid stimulating hormone measurement [facility] Start: 05-24-2024 Covid-19 Vaccine ( season) Covid-19 Vaccine () [facility] Start: 05-24-2024 Influenza vaccination Influenza Vacc ine (#1) [facility] Start: 09-23-2023 Advance Directive Discussion Advance Directive Discussion [facility] Start: 07-04-2022 Patient referral [facility] Work Phone: Start: 2021 Pneumococcal Vaccine : 65+ (2 of 2 - PPSV23 or PCV20) Pneumococcal Vaccine: 65+ (2 of 2 - PPSV23 or PCV20) [facility] Start: 03-14-2016 Shingrix Vaccine (2 of 3) Ramos grix Vaccine (2 of 3) [facility] Start: 2011 Prostate specific an tigen measurement Prostate Cancer Screening Discussion [facility] Start: 2001 Diabetes Screening Diabetes Screenin g [facility] Start: 2001 Screening for malign ant neoplasm of colon [facility] Start: 1991 Lipid panel Lipid Screening [facility] Start: 1975 Urine microalbumin profile DTa P,Tdap,Td Vaccine (1 - Tdap) [facility] Start: 1974 Anxiety Screening Anxiety Screening [facility] Start: 1974 Depression Screening Depression Scre ening [facility] Start: 1974 Hepatitis C screening Hepatitis C Sc [facility] Alanine aminotransfe rase [Enzymatic activity/volume] in Serum or Plasma [facility] Albumin [Mass/volume ] in Serum or Plasma [facility] Alkaline phosphatase [Enzymatic activity/volume] in Serum or Plasma [facility] Anion gap in Serum o r Plasma [facility] Bilirubin, total measurement [facility] BUN/Creatinine ratio [facility] Calcium [Mass/volume ] in Serum or Plasma [facility] Carbon dioxide, tota l [Moles/volume] in Central venous blood [facility] Cholesterol [Mass/vo lume] in Serum or Plasma [facility] Cholesterol in HDL [Mass/volume] in Serum or Plasma [facility] Creatinine [Mass/vol ume] in Serum or Plasma [facility] Erythrocyte mean corpuscular volume determination [facility] Glucose [Mass/volume ] in Serum or Plasma [facility] Hematocrit [Volume Fraction] of Blood [facility] Hemoglobin [Mass/vol ume] in Blood [facility] Leukocytes [#/volume ] in Blood [facility] Low density lipoprot ein cholesterol measurement [facility] Mean corpuscular hemoglobin concentration determination [facility] Mean corpuscular hemoglobin determination [facility] Measurement of renal function [facility] Neutrophil count [facility] Neutrophil percent differential count [facility] Patient referral [facility] Work Phone: Platelets [#/volume] in Blood [facility] Potassium measurement [facility] Red blood cell count [facility] Red cell distributio n width determination [facility] Serum chloride measurement [facility] Sodium measurement [facility] Total cholesterol:HD L ratio measurement [facility] Total protein measurement [facility] Triglycerides measurement [facility] Urea nitrogen [Mass/volume] in Serum or Plasma [facility] US Unspecified body region [facility] VLDL cholesterol measurement [facility] End: 09-06-2025 XR Wrist - left PA and Lateral and Oblique XR WRIST GENERAL 3V PA/LAT/OBL LEFT Radiology Routine Wrist pain, left 1 Occurrences starting 08/07/2024 until 09/06/2025 [facility] Work Phone: Comment on above: 1 Occurrences starti ng 08/07/2024 until 09/06/2025 XR Wrist - left PA a nd Lateral and Oblique XR WRIST GENERAL 3V PA/LAT/OBL LEFT Radiology Routine Wrist pain, left 08/07/2024 2:44 PM EST [facility] Immunizations Immunization Date Immunization Notes Care Provider Radha roldan 07-16-2023 influenza, injectabl e, quadrivalent, preservative free Dr. Pratik Toledo Work Phone: [facility] 07-16-2023 influenza virus vaccine, unspecified formulation Erwin Chow Jr., BIRD TRAPPER.SUPERVISOR REACTOR FUELING Work Phone: [facility] 12-28-2020 COVID-19, mRNA, LNP- S, PF, 100 mcg or 50 mcg dose; Translations: [Moderna COVID-19 Vaccine] GINNA AYALA DO [facility] 11-30-2020 COVID-19, mRNA, LNP- S, PF, 100 mcg or 50 mcg dose; Translations: [Moderna COVID-19 Vaccine] GINNA AYALA DO [facility] 07-08-[address] Pratik Toledo Work Phone: [facility] 07-08-2019 pneumococcal conjuga te vaccine, [address] Pratik Toledo Work Phone: [facility] Payers Date Payer Category Payer Unknown [id number] 2024 Self-pay [id number] 2024 Private Health Insurance [id number] 2023 Medicare UHC AAR MEDICAR E FORMERLY [facility] MEDICARE HMO [id number] 2023-Present [phone] [place] [id number] HMO [id number] 2023 Unknown [id number] 1955 Unknown [id number] Medicare MEDICARE PART A B [id number] Medicare MEDICARE PART A B [id number] Unknown [id number] Unknown [id number] Unknown [id number] Unknown [id number] Unknown [id number] Unknown [id number] Unknown [id number] Social History Date Type Detail Facility Start: 07-04-2022 End: 08-27-2023 Tobacco smoking status NHIS Tobacco smoking consumption unknown [facility] Start: 1955 Sex Assigned At Not on file [facility] Start: 1955 Sex Assigned At Male [facility] Start: 08-07-2024 Tobacco smoking stat [facility] Never smoked tobacco [facility] Start: 08-07-2024 Tobacco use and exposure Smokeless tobacco non-user [facility] Start: 08-07-2024 Alcoholic beverage intake Ex-drinker (finding) [facility] Start: 08-07-2024 History of Social function [facility] Start: 08-07-2024 Tobacco use panel [facility] Adult Depression Screening Assessment 0 [facility] Start: 08-27-2023 Tobacco smoking stat us MEIS Ex-smoker (finding) [facility] Functional Status Date Assessment Result Facility 07-20-2023 Functional Status Assistive Device None A [facility] 07-20-2023 Functional Status Room check performed [facility] Mental Status Date Assessment Result Facility 07-20-2023 Mental Status Orientation Oriented x 4 [facility] 07-20-2023 Mental Status [facility] Clinical Notes 11-03-2020 to 02-12-2025 Note Date & Type Note Facility 02-12-2025 Radiology Diagnostic study note [facility] Services [address] [place], [place] [id number] Testicular with Arterial Flow MR#: [id number] Acct: [id number] Name: RODRÍGUEZ BROOKS III Rep #: [id number] : 1955 M 69 From: Santhosh Mayo MD PCP: Dr. Pratik Toledo, DO Status: RE G CLI Study:Testicular with Arterial Flow Date of E xam: 02/10/25 Exam# [id number] Ordering Dr: Jac Draper PROCEDURE: TESTICULAR WITH ARTERIAL FLOW 02/10/2025 REASON FOR EXAM: SCROTAL MASS Left palpable lump. TECHNIQUE: Jiang scale imaging and color and spectral Doppler analysis of the scrotal contents. COMPARISON: None FINDINGS: RIGHT testicle: 4.2 cm x 3.4 cm x 2.3 cm Homogeneous echotexture. No intratesticular mass. Right epididymis: The epididymis measures 1.2 cm 1.4 cm x 1.3 cm. Small right hydrocele. LEFT testicle: 4 cm x 3.5 cm x 2.5 cm Homogeneous echotexture. No intratesticular mass. Left epididymis: The epididymis measuring 1 cm x 1.2 cm 1.4 cm. The palpable lump corresponds to a 1.5 cm x 1.4 cm 1.2 cm hypoechoic nodule along the epididymal tail with focal calcification. Other findings: Small left hydrocele. DOPPLER FINDINGS: Symmetric color doppler blood flow signal at both testes. Normal arterial inflow and venous outflow waveforms at both testes. US/Testicular with Arterial Flow IMPRESSION: Small bilateral hydroceles. The palpable lump corresponds to a 1.5 cm 1.4 cm 1.2 cm hypoechoic nodule with central calcification along the epididymal tail on the left side. Reading Location: [place] [address] CC: Dr. Pratik Toledo DO; PETER Troncoso ~ [employer]ar[employer] Supervisor: Signed [facility] 02-03-2025 Evaluation note Diagnosis Onset Date Resolution Elevated blood pressure reading acute February 03, 2025 2:13pm Epididymal mass acute February 03, 2025 2:13pm Obesity (BMI 30-39.9) acute February 03, 2025 2:13pm Type 2 diabetes mellitus acute February 03, 2025 2 :13pm [facility] Work Phone: 1(323) 880-500405-14-2025 Evaluation note* Diagnosis Onset Date Resolution Status Admit Date Elevated blood pressure reading acut e February 03, 2025 2:13pm Epididymal mass acute February 03, 2025 2:13pm Obesity (BMI 30-39.9) acute February 03, 2025 2:13pm Type 2 diabetes mellitus acute February 03, 2025 2:13pm Type 2 diabetes mellitus acute February 17, 2025 10:00am [facility] Work Phone: 1(958) 255-427905-14-2025 [facility] [address] [place] [address] [place] [address] OFFICE VISIT Date of Service: 02/03/25 MR#: [id number] Acct: [id number] Name: RODRÍGUEZ BROOKS III Rep # : [id number] : 1955 Provider: PETER Troncoso Age/Sex: 69/M Location: [facility] Status: Signed Intake Vital Signs 08/12/24 16:16 02/03/25 14:24 Height 6 ft 6 ft Weight: 285 lb 2 oz 289 lb BMI 38.7 39.2 BP 130/82 H 162/94 H Blood Pressure Location Lt brachial Lt brachial Position Sitting Sitting Respiration 16 18 Pulse 108 H 93 Pulse Source Monitor Monitor Temp 97.6 F L 97.8 F Temp Source Temporal Temporal Pulse Oximetry (%) 97 97 Oxygen Delivery Method room air room air Intake Visit Reasons: acute - lump on lft testicle Chief Complaint: acute - lump on left testicle Is patient in pain?: No Allergies semaglutide (From Ozempic) Adverse Reaction (Severe, Verified 02/03/25 14:25) Abd cramps/diarrhea Medications ?Medication ?Instructions ?Recorded ?Confirmed ?Type NK 02/03/25 02/03/25 History Have you fallen in the past year?: Yes (x1) Nurse's Note: pt states that about a week ago he noticed on self exam that he had a lump on his left testicle. denies pain at this time. states that if he moves a certain way he will have twinges of pain pt's blood pressure noted elevated today. 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 [facility] Medical History Type 2 diabetes mellitus Encounter for preventative adult health care examination Sleep apnea Surgical History History of orthopedic surgery History of appendectomy History of trigger finger Family History Father Non-Hodgkin lymphoma Diabetes Mother CVA (cerebral vascular accident) Social History Smoking Status: Former smoker how long ago did patient quit smokin alcohol intake: current alcohol intake frequency: holidays/special occasions only Alcohol type: beer substance use type: does not use what type of physical activity do you participate in: none HPI HPI Chief Complaint: acute - lump on left testicle Details: RODRÍGUEZ BROOKS, is a 69 M who presents to the office today for lump on left testicle. He states thatlast week he just sort of got up and he felt like his left testicle was sort of enlarged or like there was something beside it. He states that every once in a while there may be a slight ache but nothing really noticeable or persistent. He has not had to take any NSAIDS for the ache / discomfort.No urinary changes, discharge, or any other symptoms. He has not ever had any previous testicular issues. ROS Const Constitutional: No body ache, chills, excessive sweating, fatigue, fever(s), frequent falls, headache(s), snoring, weight change, sleep problems, abnormal sleep pattern or change in appetite Eyes Eyes: No blurry vision, change in vision, eye pain or Light sensitivity ENT ENT: No abnormal hearing, ear or mastoid pain, tinnitus, nasal congestion, headache(s), neck pain or sore throat Resp Respiratory: No cough, shortness of breath, snoring or wheezing Cardio Cardiology: No chest pain at rest, chest pain with exertion, excessive sweating,shortness of breath, dyspnea on exertion, lightheadedness, orthopnea or palpitations Gastro GI: No abdominal pain, change in bowel habits, constipation, cramping, diarrhea,nausea/dyspepsia orvomiting Genitourinary Male: No burning urination, painful urination, urinary incontinence or urinary frequency Musc Musculoskeletal: No abnormal gait, joint pain, back pain, limited range of motion, neck pain, numbness or tingling Skin Skin: No dry skin, redness, lesions, itchy eyes, rash or wounds Neuro Neurology: No abnormal gait, abnormal hearing, frequent falls, headache(s), memory loss, numbness or tingling Psych Psychiatric: No abnormal sleep pattern, No anxiety, No change in appetite, No irritability, No memory loss and No Thoughts of harming yourself/Others Endo Endocrine: No cold intolerance, excessive sweating, fatigue, flushing, heat intolerance, increased thirst/drinking, increased hunger or weight change Aller/Imm Allergy/Immunologic: No itchy eyes, seasonal allergy symptoms, hives or wheezing Wse/Lymp Hematologic/Lymphatic: No easy bleeding, easy bruising, enlarged lymph nodes or other Exam Const General: cooperative, healthy appearing, comfortable, in distress and not well developed Nutritional Appearance: obese Orientation: alert, awake and oriented x3 Neck Carotids: no bruits Lymphatic: no lymphadenopathy noted Resp Effort & Inspection: normal respiratory effort, able to speak in complete sentences, symmetric chest movement, normal respiratory pattern and no cough Auscultation: Bilateral: Clear to Auscultation Cardio Rate: regular rate Rhythm: regular rhythm and abnormal rhythm with ectopic beats (occasional ectopic beat) Heart Sounds: S1 normal and S2 normal External: circumcised, no edema, no erythema, no scrotal swelling and nontender Penis: normal penis Testes: testicular lie normal, testicles not atrophic, not enlarged, epididymal induration on the left and epididymal mass on the left fixed and firm; not mobile, nontender, not warm and not cystic Coding Level of Care Code Off vis,est,level 3 Diagnoses Epididymal mass N50.89 Type 2 diabetes mellitus without complication, without long-term current use of insulin E11.9 Diabetes mellitus tank terminal gauger insulin use: without tank terminal gauger use Diabetes mellitus complication status: without complication Elevated blood pressure reading R03.0 Obesity (BMI 30-39.9) E66.9 Assessment and Plan Assessment and Plan (1) Epididymal mass: Status: Acute Plan: Patient presents the office today for changes in the left testicular area/scrotum. Patient states that he just was doing a sort of self check when he noticed the lump on the left side. He states thisis not painful to touch orwith movements or in certain seated positions. He states again every oncea month felt a little ache but has never required to take any medications and it never lasted long.No previous history of testicular issues. Physical exam as shown above shows no obvious scrotal swelling such as in the hydrocele. Slight varicocele on the left side. The testicle itself feels soft and mobile without any obvious lumps or bumps. There is definitely an area of induration/firmness that follows more pattern of the epididymis starting just inferior/posteriorly wrapping up around the back of the testicle. This again is very evidently indurated at the same time there is no tenderness on palpation. At this time I do think that with characteristics noted it is worthwhile to get an ultrasound of this area. (2) Type 2 diabetes mellitus: Status: Acute Qualifiers: Diabetes mellitus long-term insulin use: without tank terminal gauger use Diabetesmellitus complication status: without complication Qualified Code(s): E11.9 - Type 2 diabetes mellitus without complications Plan: Patient is way overdue for some lab work to check his diabetes as well as some other basic labs. (3) Elevated blood pressure reading: Status: Acute Plan: Patient does have some elevation in his blood pressure today. Last several readings have all been very good and he states normally it is good at home however he just had a shorter stressful workday. Explained that I really would like him to be monitoring this at home just to make sure that this is an isolated elevation that his blood pressures are good normally. Patient does have a blood pressurecuff at home and I do want him again to keep a log over this over the next few weeks and notify if there is any changes. (4) Obesity (BMI 30-39.9): Status: Acute Orders: Orders Testicular with Arterial Flow Today N50.89 - Other specified disorders of the male genital organs CBC W/Diff, Automated Today E11.9 - Type 2 diabetes mellitus without complications Comprehensive Metabolic Profil Today E11.9 - Type 2 diabetes mellitus without complications Lipid Profile Today E11.9 - Type 2 diabetes mellitus without complications, E66.9 - Obesity, unspecified Thyroid Stim Hormone (TSH) Today R53.83 - Other fatigue Hemoglobin A1c Today E11.9 - Type 2 diabetes mellitus without complications Clinical Quality Measures Falls Risk Screening/Assistive Devices Have you fallen in the past year?: Yes (x1) 02/03/25 1516 PETER GREEN> Date _ oRgers GREEN Cosigner Signature: Date (if applicable) CC: ~ [facility]05-14-2025 Progress note Author Rogers Draper [facility] Note Date/Time February 03, 2025 3:16p m [facility] [address] [place] [address] [place] [address] OFFICE VISIT Date of Service: 02/03/25 MR#: [id number] Acct: [id number] Name: RODRÍGUEZ BROOKS III Rep # : [id number] : 1955 Provider: PETER Troncoso Age/Sex: 69/M Location: [facility] [place].[facility] Status: Signed Intake Vital Signs 08/12/24 16:16 02/03/25 14:24 Height 6 ft 6 ft Weight: 285 lb 2 oz 289 lb BMI 38.7 39.2 BP 130/82 H 162/94 H Blood Pressure Location Lt brachial Lt brachial Position Sitting Sitting Respiration 16 18 Pulse 108 H 93 Pulse Source Monitor Monitor Temp 97.6 F L 97.8 F Temp Source Temporal Temporal Pulse Oximetry (%) 97 97 Oxygen Delivery Method room air room air Intake Visit Reasons: acute - lump on lft testicle Chief Complaint: acute - lump on left testicle Is patient in pain?: No Allergies semaglutide (From Ozempic) Adverse Reaction (Severe, Verified 02/03/25 14:25) Abd cramps/diarrhea Medications ?Medication ?Instructions ?Recorded ?Confirmed ?Type NK 02/03/25 02/03/25 History Have you fallen in the past year?: Yes (x1) Nurse's Note: pt states that about a week ago he noticed on self exam that he had a lump on his left testicle. denies pain at this time. states that if he moves a certain way he will have twinges of pain pt's blood pressure noted elevated today. 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 [facility] Medical History Type 2 diabetes mellitus Encounter for preventative adult health care examination Sleep apnea Surgical History History of orthopedic surgery History of appendectomy History of trigger finger Family History Father Non-Hodgkin lymphoma Diabetes Mother CVA (cerebral vascular accident) Social History Smoking Status: Former smoker how long ago did patient quit smokin alcohol intake: current alcohol intake frequency: holidays/special occasions only Alcohol type: beer substance use type: does not use what type of physical activity do you participate in: none HPI HPI Chief Complaint: acute - lump on left testicle Details: RODRÍGUEZ BROOKS, is a 69 M who presents to the office today for lump on left testicle. He states that last week he just sort of got up and he felt like his left testicle was sort of enlarged or like there was something beside it. He states that every once in a while there may be a slight ache but nothing really noticeable or persistent. He has not had to take any NSAIDS for the ache / discomfort. No urinary changes, discharge, or any other symptoms. He has not ever had any previous testicular issues. ROS Const Constitutional: No body ache, chills, excessive sweating, fatigue, fever(s), frequent falls, headache(s), snoring, weight change, sleep problems, abnormal sleep pattern or change in appetite Eyes Eyes: No blurry vision, change in vision, eye pain or Light sensitivity ENT ENT: No abnormal hearing, ear or mastoid pain, tinnitus, nasal congestion, headache(s), neck pain or sore throat Resp Respiratory: No cough, shortness of breath, snoring or wheezing Cardio Cardiology: No chest pain at rest, chest pain with exertion, excessive sweating,shortness of breath, dyspnea on exertion, lightheadedness, orthopnea or palpitations Gastro GI: No abdominal pain, change in bowel habits, constipation, cramping, diarrhea,nausea/dyspepsia or vomiting Genitourinary Male: No burning urination, painful urination, urinary incontinence or urinary frequency Musc Musculoskeletal: No abnormal gait, joint pain, back pain, limited range of motion, neck pain, numbness or tingling Skin Skin: No dry skin, redness, lesions, itchy eyes, rash or wounds Neuro Neurology: No abnormal gait, abnormal hearing, frequent falls, headache(s), memory loss, numbness or tingling Psych Psychiatric: No abnormal sleep pattern, No anxiety, No change in appetite, No irritability, No memory loss and No Thoughts of harming yourself/Others Endo Endocrine: No cold intolerance, excessive sweating, fatigue, flushing, heat intolerance, increased thirst/drinking, increased hunger or weight change Aller/Imm Allergy/Immunologic: No itchy eyes, seasonal allergy symptoms, hives or wheezing Wes/Lymp Hematologic/Lymphatic: No easy bleeding, easy bruising, enlarged lymph nodes or other Exam Const General: cooperative, healthy appearing, comfortable, in distress and not well developed Nutritional Appearance: obese Orientation: alert, awake and oriented x3 Neck Carotids: no bruits Lymphatic: no lymphadenopathy noted Resp Effort & Inspection: normal respiratory effort, able to speak in complete sentences, symmetric chest movement, normal respiratory pattern and no cough Auscultation: Bilateral: Clear to Auscultation Cardio Rate: regular rate Rhythm: regular rhythm and abnormal rhythm with ectopic beats (occasional ectopic beat) Heart Sounds: S1 normal and S2 normal External: circumcised, no edema, no erythema, no scrotal swelling and nontender Penis: normal penis Testes: testicular lie normal, testicles not atrophic, not enlarged, epididymal induration on the left and epididymal mass on the left fixed and firm; not mobile, nontender, not warm and not cystic Coding Level of Care Code Off vis,est,level 3 Diagnoses Epididymal mass N50.89 Type 2 diabetes mellitus without complication, without long-term current use of insulin E11.9 Diabetes mellitus long-term insulin use: without tank terminal gauger use Diabetes mellitus complication status: without complication Elevated blood pressure reading R03.0 Obesity (BMI 30-39.9) E66.9 Assessment and Plan Assessment and Plan (1) Epididymal mass: Status: Acute Plan: Patient presents the office today for changes in the left testicular area/scrotum. Patient states that he just was doing a sort of self check when he noticed the lump on the left side. He states this is not painful to touch orwith movements or in certain seated positions. He states again every once a month felt a little ache but has never required to take any medications and it never lasted long. No previous history of testicular issues. Physical exam as shown above shows no obvious scrotal swelling such as in the hydrocele. Slight varicocele on the left side. The testicle itself feels soft and mobile without any obvious lumps or bumps. There is definitely an area of induration/firmness that follows more pattern of the epididymis starting just inferior/posteriorly wrapping up around the back of the testicle. This again is very evidently indurated at the same time there is no tenderness on palpation. At this time I do think that with characteristics noted it is worthwhile to get an ultrasound of this area. (2) Type 2 diabetes mellitus: Status: Acute Qualifiers: Diabetes mellitus long-term insulin use: without long-term use Diabetesmellitus complication status: without complication Qualified Code(s): E11.9 - Type 2 diabetes mellitus without complications Plan: Patient is way overdue for some lab work to check his diabetes as well as some other basic labs. (3) Elevated blood pressure reading: Status: Acute Plan: Patient does have some elevation in his blood pressure today. Last several readings have all been very good and he states normally it is good at home however he just had a shorter stressful workday. Explained that I really would like him to be monitoring this at home just to make sure that this is an isolated elevation that his blood pressures are good normally. Patient does have a blood pressure cuff at home and I do want him again to keep a log over this over the next few weeks and notify if there is any changes. (4) Obesity (BMI 30-39.9): Status: Acute Orders: Orders Testicular with Arterial Flow Today N50.89 - Other specified disorders of the male genital organs CBC W/Diff, Automated Today E11.9 - Type 2 diabetes mellitus without complications Comprehensive Metabolic Profil Today E11.9 - Type 2 diabetes mellitus without complications Lipid Profile Today E11.9 - Type 2 diabetes mellitus without complications, E66.9 - Obesity, unspecified Thyroid Stim Hormone (TSH) Today R53.83 - Other fatigue Hemoglobin A1c Today E11.9 - Type 2 diabetes mellitus without complications Clinical Quality Measures Falls Risk Screening/Assistive Devices Have you fallen in the past year?: Yes (x1) 02/03/25 0306 <Electronically signed by Rogers GREEN> Date _ Rogers Scruggs Signature: Date (if applicable) CC: ~ [facility] Work Phone: [phone] Instructions* Patient Instructions* Erwin Chow Jr., APRN.CNP - 08/07/2024 2:50 PM EST Monitor laceration area for signs of infection these include redness, warmth, swelling, pain, and pus. Follow-up with your primary care physician to see when your last tetanus shot was given. If within 5 years I recommend an update. Kkek-avm-yefmvav medications as needed. Keep the laceration dry for the next 24 hours after that do not soak it in water but showering is okay. [facility] History of Present illness Narrative* Shahzad Gold RT(R) - 08/07/2024 2:40 PM EST Radiology Service Progress Note PATIENT NAME: Rodríguez Brooks DATE OF SERVICE: August 07, 2024 TIME: 2:44 PM PATIENT IDENTITY VERIFICATION COMPLETED USING TWO (2) IDENTIFIERS: Name and Date of confirmedby patient verbally. FALL SCREENING: Has the patient had 2 falls in the last year or 1 fall with injury or currently using an Ambulatory Assistive Device (Walker, Cane, Wheelchair, Crutches, etc.)? No PATIENT GENDER DATA: Male PATIENT RELEVANT IMPLANT DATA REVIEWED: Not Applicable PATIENT PRESENTS WITH AN IMPLANTABLE OR ATTACHED INTERNET MEDIA PLANNER: No RADIOLOGY DEPARTMENT: General X-ray: Exam(s) Completed: Upper Extremity X- Ray(s): Wrist, left PERIPHERAL IV DATA: Not applicable SIGNED BY: RT Latasha(R) August 07, 2024 2:44 PM documented in this encounterGrant Hospital11-15-2024 NoteHNO ID: [id number] Author: SHAHZAD GOLD RT(R) Service: ? Author Type: Technologist Type: Progress Notes Filed: 08/07/2024 14:45 Note Text: Radiology Service Progress Note PATIENT NAME: Rodríguez Brooks DATE OF SERVICE: August 07, 2024 TIME: 2:44 PM PATIENT IDENTITY VERIFICATION COMPLETED USING TWO (2) IDENTIFIERS: Name and Date of confirmed by patient verbally. FALL SCREENING: Has the patient had 2 falls in the last year or 1 fall with injury or currently using an Ambulatory Assistive Device (Walker, Cane, Wheelchair, Crutches, etc.)? No PATIENT GENDER DATA: Male PATIENT RELEVANT IMPLANT DATA REVIEWED: Not Applicable PATIENT PRESENTS WITH AN IMPLANTABLE OR ATTACHED INTERNET MEDIA PLANNER: No RADIOLOGY DEPARTMENT: General X-ray: Exam(s) Completed: Upper Extremity X-Ray(s): Wrist, left PERIPHERAL IV DATA: Not applicable SIGNED BY: RT Latasha(Tristan) August 07, 2024 2:44 PM[facility] NoteHNO ID: [id number] Author: ERWIN CHOW JR, APRN.SAIGE Service: ? Author Type: Nurse Practitioner Type: Progress Notes Filed: 08/07/2024 15:07 Note Text: Rodríguez Brooks is a 69 year old male who presents with Laceration (Fell off step stool 30 min ago at home left posterior forearm 5.2cm area 1 cm surface area, left wrist pain) 69-year-old male presents today with complaint of cut to his left lateral forearm and left wrist pain. Patient related he was at home on a stepstool when he began to lose his balance he tried to step off and his foot caught the side of the stepstool and he fell down landing on his left knee, left wrist and forearm. He thinks he cut his wrist on an object that was laying on the floor. Patient states the knee pain is very slight and does not want it looked at. Denies hitting his head or any loss of consciousness. The history is provided by the patient. Laceration History reviewed. No pertinent past medical history. There is no problem list on file for this patient. No current outpatient medications on file. No current facility-administered medications for this visit. Social History Tobacco Use Smoking status: Never Smokeless tobacco: Never Vaping Use Vaping status: Never Used Substance Use Topics Alcohol use: Not Currently Drug use: Never Alcohol Use: Not Currently Tobacco Use: Never History reviewed. No pertinent family history. Review of Systems Constitutional: Negative for fever. HENT: Negative for congestion and sore throat. Respiratory: Negative for cough. Cardiovascular: Negative for chest pain. Gastrointestinal: Negative for nausea and vomiting. Skin: Negative for rash. Neurological: Negative for headaches. BP 147/96 Pulse 61 Temp 97.4 Resp 18 SpO2 96% Physical Exam Vitals (Blood pressure is elevated) reviewed. Constitutional: Appearance: Normal appearance. HENT: Head: Normocephalic and atraumatic. Mouth/Throat: Mouth: Mucous membranes are moist. Pharynx: Oropharynx is clear. Eyes: Conjunctiva/sclera: Conjunctivae normal. Cardiovascular: Rate and Rhythm: Normal rate and regular rhythm. Heart sounds: Normal heart sounds. Pulmonary: Effort: Pulmonary effort is normal. Breath sounds: Normal breath sounds. Abdominal: General: Bowel sounds are normal. Palpations: Abdomen is soft. Skin: General: Skin is warm. Comments: There are 2 small areas of laceration/abrasions in the left posterior lateral forearm. The superior aspect of the forearm is the longest one the edges are well-maintained at the distal area however there is some opening at the proximal aspect. The other small abrasion is almost perpendicular to the laceration and does not need treatment. Neurological: Mental Status: He is alert. Left wrist x-ray: No acute fracture noted. Awaiting radiology report. Procedure Steri-Strip application. Patient gave verbal approval for procedure. I discussed scar tissue formation as a result of procedure with patient patient decided that he would prefer Steri-Strips over suturing. Wound was cleaned with soap and water, area dried, Steri-Strips applied. Patient given instructions on care and bandage applied over laceration. Patient does not have tetanus immunization record in the system. He states he has an appointment next week with his primary care physician will discuss how long ago his last tetanus was. Patient declined tetanus shot at this visit. ASSESSMENT/PLAN: 1. Abrasion of left forearm, initial encounter - ICD9: 913.0, ICD10: S50.812A (primary diagnosis) 2. Wrist pain, left - ICD9: 719.43, ICD10: M25.532 - XR WRIST GENERAL 3V PA/LAT/OBL LEFT 3. Wrist sprain, left, initial encounter - ICD9: 842.00, ICD10: S63.502A -Patient presented secondary to a fall resulting in a laceration left wrist pain. -Acute fracture noted on x-rays and patient declined left wrist brace. -Strip applied to the lacerated area. -Given instructions. -Follow-up with PCP, keep PC appointment this next week and discuss tetanus immunization history. Go to emergency room if any severe symptoms occur. -Wrist pain continues to hurt I recommend follow-up for further evaluation. Stated understanding agreement current plan of care. Erwin Chow Jr, HILL.[facility]11-15-2024 History of Present illness Narrative* Erwin Chow Jr., BIRD TRAPPER.[facility] - 08/07/2024 2:08 PM EST Images from the original note were not included. Rodríguez Brooks is a 69 year old male who presents with Laceration (Fell off step stool 30 min ago at home left posterior forearm 5.2cm area 1 cm surface area, left wrist pain) 69-year-old male presents today with complaint of cut to his left lateral forearm and left wrist pain. Patient related he was at home on a stepstool when he began to lose his balance he tried to stepoff and his foot caught the side of the stepstool and he fell down landing on his left knee, left wrist and forearm. He thinks he cut his wrist on an object that was laying on the floor. Patient states the knee pain is very slight and does not want it looked at. Denies hitting his head or any loss of consciousness. The history is provided by the patient. Laceration History reviewed. No pertinent past medical history. There is no problem list on file for this patient. No current outpatient medications on file. No current facility-administered medications for this visit. Social History Tobacco Use Smoking status: Never Smokeless tobacco: Never Vaping Use Vaping status: Never Used Substance Use Topics Alcohol use: Not Currently Drug use: Never Alcohol Use: Not Currently Tobacco Use: Never History reviewed. No pertinent family history. Review of Systems Constitutional: Negative for fever. HENT: Negative for congestion and sore throat. Respiratory: Negative for cough. Cardiovascular: Negative for chest pain. Gastrointestinal: Negative for nausea and vomiting. Skin: Negative for rash. Neurological: Negative for headaches. BP 147/96 Pulse 61 Temp 97.4 Resp 18 SpO2 96% Physical Exam Vitals (Blood pressure is elevated) reviewed. Constitutional: Appearance: Normal appearance. HENT: Head: Normocephalic and atraumatic. Mouth/Throat: Mouth: Mucous membranes are moist. Pharynx: Oropharynx is clear. Eyes: Conjunctiva/sclera: Conjunctivae normal. Cardiovascular: Rate and Rhythm: Normal rate and regular rhythm. Heart sounds: Normal heart sounds. Pulmonary: Effort: Pulmonary effort is normal. Breath sounds: Normal breath sounds. Abdominal: General: Bowel sounds are normal. Palpations: Abdomen is soft. Skin: General: Skin is warm. Comments: There are 2 small areas of laceration/abrasions in the left posterior lateral forearm. The superior aspect of the forearm is the longest one the edges are well-maintained at the distal areahowever there is some opening at the proximal aspect. The other small abrasion is almost perpendicular to the laceration and does not need treatment. Neurological: Mental Status: He is alert. Left wrist x-ray: No acute fracture noted. Awaiting radiology report. Procedure Steri-Strip application. Patient gave verbal approval for procedure. I discussed scar tissue formation as a result of procedure with patient patient decided that he would prefer Steri-Strips over suturing. Wound was cleaned with soap and water, area dried, Steri-Strips applied. Patient given instructions on care and bandage applied over laceration. Patient does not have tetanus immunization record in the system. He states he has an appointment next week with his primary care physician will discuss how long ago his last tetanus was. Patient declined tetanus shot at this visit. ASSESSMENT/PLAN: 1. Abrasion of left forearm, initial encounter - ICD9: 913.0, ICD10: S50.812A (primary diagnosis) 2. Wrist pain, left - ICD9: 719.43, ICD10: M25.532 - XR WRIST GENERAL 3V PA/LAT/OBL LEFT 3. Wrist sprain, left, initial encounter - ICD9: 842.00, ICD10: S63.502A -Patient presented secondary to a fall resulting in a laceration left wrist pain. -Acute fracture noted on x-rays and patient declined left wrist brace. -Strip applied to the lacerated area. -Given instructions. -Follow-up with PCP, keep PC appointment this next week and discuss tetanus immunization history. Go to emergency room if any severe symptoms occur. -Wrist pain continues to hurt I recommend follow-up for further evaluation. Stated understanding agreement current plan of care. Erwin Chow Jr, APRN.[employer] documented in this encounterGrant Hospital10-28-2023 Hospital Discharge instructions Patient Education 07/20/2023 05:06:21 Otitis Media, Antibiotic Treatment (Adult) Middle Ear Infection (Adult) You have an infection of the middle ear, the space behind the eardrum. This is also called acute otitis media (AOM). Sometimes it is caused by the common cold. This is because congestion can block the internal passage (eustachian tube) that drains fluid from the middle ear. When the middle ear fills with fluid, bacteria can grow there and cause an infection. Oral antibiotics are used to treat this illness, not ear drops. Symptoms usually start to improve within 1 to 2 days of treatment. Home care The following are general care guidelines: Finish all of the antibiotic medicine given, even though you may feel better after the first few days. You may use cdul-yww-mtwmesu medicine, such as acetaminophen or ibuprofen, to control pain and fever, unless something else was prescribed. If you have chronic liver or kidney disease or have ever had a stomach ulcer or gastrointestinal bleeding, talk with your healthcare provider before using these medicines. Do not give aspirin to anyone under 18 years of age who has a fever. It may cause severe illness or . Follow-up care Follow up with your healthcare provider, or as advised, in 2 weeks if all symptoms have not gotten better, or if hearing doesn't go back to normal within 1 month. When to seek medical advice Call your healthcare provider right away if any of these occur: Ear pain gets worse or does not improve after 3 days of treatment Unusual drowsiness or confusion Neck pain, stiff neck, or headache Fluid or blood draining from the ear canal Fever of 100.4 F (38 C) or as advised Seizure [id number] [employer]. [address] [place] [address], [place] [address]. All rights reserved. This information is not intended as a substitute for professional medical care. Always follow yourhealthcare professional's instructions. Follow Up Care 07/20/2023 04:13:15 With:ARACELI LEMONS DO Address: [address] [place] [address] [address] [place] [address]- [phone] When:2-4 days With:PRATIK TOLEDO DO Address: [facility] [address] [place] [address] [place] [address] [phone] When:2-[address] [facility] 10-28-2023 Note Discharge Instructions Thank you for allowing [employer] to assist you with your healthcare needs. The following is importantdischarge information regarding your hospital visit. Diagnosis from Today's Visit Ear pain Otitis media What to Do Next Instructions from Your Care Team No qualifying data available. Post Acute Orders No qualifying data available. You Need to Schedule the Following Appointments Follow Up with PRATIK TOLEDO DO When Within 2-4 days Where: [facility] [address] [place] [address] [place] [address]- [phone] Allergies NKA Medications Please ask your primary doctor or pharmacist before taking any other medication not listed, including over the counter drugs, herbal medications, vitamins and or supplements as they may interact withyour home medications. What How Much When Instructions Last Dose New amoxicillin-clavulanate (amoxicillin-clavulanate 875 mg-125 mg oral tablet) 1 tab(s) by mouth Every 12 hours Duration: 7 Days Printed Prescription Please take this list to your next doctor s visit. Bring all medications you take, including over the counter medications, herbals and other supplements with you to your doctor s visit. Patients and families are reminded to discard old lists and to update any records with all medication providers or retail pharmacies. Medication Leaflets amoxicillin and clavulanate potassium (am OK i PALAK in KLAV ue NICOL ate crispin TAS ee um) Augmentin What is the most important information I should know about amoxicillin and clavulanate potassium? You should not use this medicine if you have severe kidney disease, if you have had liver problems or jaundice while taking amoxicillin and clavulanate potassium, or if you are allergic to any penicillin or cephalosporin antibiotic, such as Amoxil, Ceftin, Cefzil, Moxatag, Omnicef, and others. What is amoxicillin and clavulanate potassium? Amoxicillin is a penicillin antibiotic. Clavulanate potassium helps prevent certain bacteria from becoming resistant to amoxicillin. Amoxicillin and clavulanate potassium is a combination medicine used to treat many different infections caused by bacteria, such as sinusitis, pneumonia, ear infections, bronchitis, urinary tract infections, and infections of the skin. Amoxicillin and clavulanate potassium may also be used for purposes not listed in this medication guide. What should I discuss with my healthcare provider before taking amoxicillin and clavulanate potassium? You should not use this medicine if you are allergic to it, or if: you have severe kidney disease (or if you are on dialysis); you have had liver problems or jaundice while taking amoxicillin and clavulanate potassium; or you are allergic to any penicillin or cephalosporin antibiotic, such as Amoxil, Ceftin, Cefzil, Moxatag, Omnicef, and others. Tell your doctor if you have ever had: liver disease (hepatitis or jaundice); kidney disease; or mononucleosis. The liquid or chewable tablet may contain phenylalanine. Tell your doctor if you have phenylketonuria (PKU). Tell your doctor if you are or . Amoxicillin and clavulanate potassium can make control pills less effective. Ask your doctor about using a non-hormonal control (condom, diaphragm, cervical cap, or contraceptive sponge) to prevent . Do not give this medicine to a child without medical advice. How should I take amoxicillin and clavulanate potassium? Follow all directions on your prescription label and read all medication guides or instruction sheets. Use the medicine exactly as directed. Amoxicillin and clavulanate potassium may work best if you take it at the start of a meal. Take the medicine every 12 hours. Do not crush or chew the extended-release tablet. Swallow the pill whole, or break the pill in halfand take both halves one at a time. Tell your doctor if you have trouble swallowing a whole or halfpill. You must chew the chewable tablet before you swallow it. Shake the oral suspension (liquid) before you measure a dose. Use the dosing syringe provided, or use a medicine dose-measuring device (not a kitchen spoon). This medicine can affect the results of certain medical tests. Tell any doctor who treats you that you are using amoxicillin and clavulanate potassium. Use this medicine for the full prescribed length of time, even if your symptoms quickly improve. Skipping doses can increase your risk of infection that is resistant to medication. Amoxicillin and clavulanate potassium will not treat a viral infection such as the flu or a common cold. Store the tablets at room temperature away from moisture and heat. Store the liquid in the refrigerator. Throw away any unused liquid after 10 days. What happens if I miss a dose? Take the medicine as soon as you can, but skip the missed dose if it is almost time for your next dose. Do not take two doses at one time. What happens if I overdose? Seek emergency medical attention or call the Poison Help line at . Overdose can cause nausea, vomiting, stomach pain, diarrhea, skin rash, drowsiness, hyperactivity, and decreased urination. What should I avoid while taking amoxicillin and clavulanate potassium? Avoid taking this medicine together with or just after eating a high-fat meal. This will make it harder for your body to absorb the medication. Antibiotic medicines can cause diarrhea, which may be a sign of a new infection. If you have diarrhea that is watery or bloody, call your doctor before using anti-diarrhea medicine. What are the possible side effects of amoxicillin and clavulanate potassium? Get emergency medical help if you have signs of an allergic reaction (hives, difficult breathing, swelling in your face or throat) or a severe skin reaction (fever, sore throat, burning eyes, skin pain, red or purple skin rash with blistering and peeling). Stop using amoxicillin and clavulanate potassium and seek medical treatment if you have a serious drug reaction that can affect many parts of your body. Symptoms may include skin rash, fever, swollenglands, muscle aches, severe weakness, unusual bruising, or yellowing of your skin or eyes. Call your doctor at once if you have: severe stomach pain, diarrhea that is watery or bloody (even if it occurs months after your last dose); pale or yellowed skin, dark colored urine, fever, confusion or weakness; loss of appetite, upper stomach pain; little or no urination; or easy bruising or bleeding. Common side effects may include: nausea, vomiting; diarrhea; rash, itching; vaginal itching or discharge; or diaper rash. This is not a complete list of side effects and others may occur. Call your doctor for medical advice about side effects. You may report side effects to FDA at 6-025-TNA-3244. What other drugs will affect amoxicillin and clavulanate potassium? Tell your doctor about all your other medicines, especially: allopurinol; probenecid; or a blood thinner--warfarin, Coumadin, Jantoven. This list is not complete. Other drugs may affect amoxicillin and clavulanate potassium, including prescription and qamu-ngw-wthndvf medicines, vitamins, and herbal products. Not all possible drug interactions are listed here. Where can I get more information? Your doctor or pharmacist can provide more information about amoxicillin and clavulanate potassium. Remember, keep this and all other medicines out of the reach of children, never share your medicines with others, and use this medication only for the indication prescribed. Every effort has been made to ensure that the information provided by [employer]') is accurate, up-to-date, and complete, but no guarantee is made to that effect. Drug information contained herein may be time sensitive. [employer] information has been compiled for use by healthcare practitioners and consumers in the [place] and therefore [employer] does not warrant that uses outside of the [place] are appropriate, unless specifically indicated otherwise. [employer] drug information does not endorse drugs, diagnose patients or recommend therapy. [employer] drug information isan informational resource designed to assist licensed healthcare practitioners in caring for their p atients and/or to serve consumers viewing this service as a supplement to, and not a substitute for, the expertise, skill, knowledge and judgment of healthcare practitioners. The absence of a warningfor a given drug or drug combination in no way should be construed to indicate that the drug or drug combination is safe, effective or appropriate for any given patient. [employer] does not assume any responsibility for any aspect of healthcare administered with the aid of information [employer] provides. The information contained herein is not intended to cover all possible uses, directions, precautions, warnings, drug interactions, allergic reactions, or adverse effects. If you have questions about the drugs you are taking, check with your doctor, nurse or pharmacist. Copyright 7619-7805 [employer] Version: 14.. Revision Date: 06/29/2022. Education Materials Middle Ear Infection (Adult) You have an infection of the middle ear, the space behind the eardrum. This is also called acute otitis media (AOM). Sometimes it is caused by the common cold. This is because congestion can block the internal passage (eustachian tube) that drains fluid from the middle ear. When the middle ear fills with fluid, bacteria can grow there and cause an infection. Oral antibiotics are used to treat this illness, not ear drops. Symptoms usually start to improve within 1 to 2 days of treatment. Home care The following are general care guidelines: Finish all of the antibiotic medicine given, even though you may feel better after the first few days. You may use dwmg-xtp-yqoqxae medicine, such as acetaminophen or ibuprofen, to control pain and fever, unless something else was prescribed. If you have chronic liver or kidney disease or have ever had a stomach ulcer or gastrointestinal bleeding, talk with your healthcare provider before using these medicines. Do not give aspirin to anyone under 18 years of age who has a fever. It may cause severe illness or . Follow-up care Follow up with your healthcare provider, or as advised, in 2 weeks if all symptoms have not gotten better, or if hearing doesn't go back to normal within 1 month. When to seek medical advice Call your healthcare provider right away if any of these occur: Ear pain gets worse or does not improve after 3 days of treatment Unusual drowsiness or confusion Neck pain, stiff neck, or headache Fluid or blood draining from the ear canal Fever of 100.4 F (38 C) or as advised Seizure 5916-6217 [employer]. [address] [place] [address], [place] [address]. All rights reserved. This information is not intended as a substitute for professional medical care. Always follow yourhealthcare professional's instructions. Additional Information VACCINATE! IT SAVES LIVES! Members of the community who have not yet received the COVID-19 vaccine and would like to receive it can visit one of [facility] vaccine clinics. There are many vaccine clinic locations within the [facility]. For locations and available times, please visit www.gettheshot.coronavirus.[place].gov/. It is important to note that some COVID mobile vaccine clinics are held outdoors and may be canceled in rainy or stormy conditions. To learn more about pediatric vaccinations (ages 5-11), we invite you to visit the [facility] webpage. https://www.[facility].org/pages/8820-Wvcpr-Vqscmsuywwt-Xwwaligmbr-Gcfug-Usi stions.htmlTo learn more about the COVID-19 vaccine, we invite you to visit the CDC website for a list of frequently asked questions. https://www.cdc.gov/coronavirus/2019-ncov/vaccines/faq.html [employer] Patient Portal Access Instructions: Stay connected with your healthcare team and access your personal medical information anytime with the [employer] Patient Portal. If you would like a full copy of your medical records please contact the [facility] Medical Records Department Saturday through Saturday between 8a.m. and 4:30p.m. Please follow the directions below to access the portal: 1.Access the email account you provided upon registration to the hospital.2.Look for an invitation email from [facility].3.Open the email and access the invitation link: Accept Invitation to [employer] [facility]4.Fill in the required nunez to create your account. Sign into www.[employer] with your username and password that you created in the above steps to stay up to date. You can then view a summary of results, a summary of your visits, and the ability to download your summaries to your computer or send the information securely to a physician. Remember that your healthcare information is confidential, so carefully consider who you will allow to register on the [employer] Patient Portal for access to your information. You can also access the [employer] Patient Portal on the [employer]. Simply click on Health Records under [email or web address] and then click on the [employer] logo. HOW TO SAFELY DISPOSE OF PRESCRIPTION MEDICATIONS Please use one of the following methods to safely dispose of your unused medications. 1.Use a drug disposal kit: the drug disposal pouch allows you to safely discard your old and unuseddrugs. Ask your nurse to give you one when you are discharged.2.Visit a local take-back location: Many local pharmacies and police departments have programs that collect old and unwanted prescriptiondrugs. Call your local pharmacy or go to http://bit.Linguee/4K8Qw7t to find one close to you.3.Make use of household items: Use cat litter or old coffee grounds to dispose medications if other options arenot available. Mix your drugs with these household products, seal them in an airtight container andthrow it into the garbage. Call [facility]: [phone] to be sure your drugs can be disposed of in this way. Some medicines may require a different approach.4.Never flush your medications down the toilet. IF YOU HAVE BEEN PRESCRIBED AN OPIOIDS FOR PAIN If you have been prescribed an opioid (such as hydrocodone, oxycodone or morphine), it is critical to understand the possible side effects and risks of opioid pain medications. Even when taken as directed, opioids can have several side effects including: Tolerance, meaning you might need to take more of a medication for the same pain relief. Nausea, vomiting and/or constipation. Sleepiness, dizziness, dry mouth, confusion, depression or itching. Physical dependence, meaning you have withdrawal symptoms when a medication is stopped ? this can develop within a few days. KNOW YOUR RESPONSIBILITIES It is important to know exactly how much and how often to take the opioid pain medications you are prescribed. Never take opioids in higher amounts or more often than prescribed. Do not combine opioids with alcohol or other drugs that cause drowsiness, such as benzodiazepines, also known as benzos,including diazepam and alprazolam, muscle relaxants or sleep aids. Never sell or share prescriptionopioids. This is illegal. Store opioids in a secure place and out of reach of others (including children, family, friends and visitors). The last page(s) of this document has been signed and retained as a CHART COPY Signatures Patient Education Materials Otitis Media, Antibiotic Treatment (Adult) Medication Leaflets amoxicillin and clavulanate potassium My discharge plan and instructions have been reviewed and explained to me and I,RODRÍGUEZ BROOKS understand my current condition and have read and understand these discharge instructions. I have received a written copy of the plan/instructions. If I have questions, I am aware that I should contact my doctor. Patient/Oncology Physician Signature: Date/Time: Relationship to Patient: Witness Name/Signature: Date/Time: [facility]10-28-2023 Note ORIGINAL EXAMINATION: CT OF THE HEAD WITHOUT CONTRAST 07/20/2023 4:54 am TECHNIQUE: CT of the head was performed without the administration of intravenous contrast. Automated exposure control, iterative reconstruction, and/or weight based adjustment of the mA/kV was utilized to reduce the radiation dose to as low as reasonably achievable. COMPARISON: None. HISTORY: ORDERING SYSTEM PROVIDED HISTORY: Reason for Exam: Left ear pain that started at 2 am this morning; woke him up again around 3 am. Pain is stabbing and comes and goes. sudden left inner ear/head pain FINDINGS: BRAIN/VENTRICLES: There is no acute intracranial hemorrhage, mass effect or midline shift. No abnormal extra-axial fluid collection. The jiang-white differentiation is maintained without evidence of an acute infarct. There is no evidence of hydrocephalus. ORBITS: The visualized portion of the orbits demonstrate no acute abnormality. SINUSES: Visualized paranasal sinuses are remarkable only for mild mucosal thickening of the right frontal sinus and a few anterior ethmoid air cells. Bilateral mastoid air cells are well aerated. No evidence of temporal bone abnormality. SOFT TISSUES/SKULL: No acute abnormality of the visualized skull or soft tissues. IMPRESSION: No acute intracranial abnormality. Interpreted by: Marino Colby MD Preliminary Report By: Marino Colby MD Electronically signed By Marino Colby MD Dictated Date: 07/20/2023 4:57:00 AM Prelim Date: 07/20/2023 4:58:43 AM Sign Date: 07/20/2023 4:58:43 AM Ordering Provider: [facility]02-11-2021 History of Present illness Narrative* Sean Loyola MD - 11/03/2020 7:19 PM EST DATE OF SERVICE: 11/03/2020 REASON OF VISIT: Headache and neck pain. HISTORY OF PRESENT ILLNESS: This is 65-year-old male who fell down about an hour ago, hit the back side of the neck to the ground when he slipped on ice. He lost consciousness briefly. Right now, he does not have any tingling, numbness or weakness, no dizziness, no blurry vision. He has some neck pain. He can ambulate well. No nausea or vomiting. REVIEW OF OTHER SYSTEMS: Normal. ALLERGIES: NKA. MEDICATIONS: None. PHYSICAL EXAMINATION: He is awake and alert, not in distress. No dyspnea. Temperature 97.4, blood pressure 140/92, pulse 94, respirations 16, pulse oximetry 96 on room air. Pain score 3/10. HEENT: Examination reveals he has mild bruising and tenderness of the scalp in the occipital area. No tenderness of the cervical spine but motion of the cervical spine is slightly painful. Cranial nerves are normal. Motor function 5/5. Sensation intact. Chest: Clear to auscultate. Heart: Regular rate and rhythm. Overall, neurologically grossly intact. X-ray of the cervical spine did not show any acute injury but some degenerative changes. ASSESSMENT: 1. Concussion. 2. Contusion of the scalp. 3. Cervical sprain. PLAN: Clinical findings were discussed with the patient in detail. I gave him printed instructions about his head injury to read and follow. If there are any abnormal symptoms, he must go to the hospital for further evaluation and care. He should rest and use ice pack to the pain area. Tylenol as needed. Follow up with his doctor for further evaluation and care. Not to do any heavy duty for now. Patient understands and agrees. His questions were answered to his satisfaction. Sean Loyola MD [id number] SSI File#: [id number] END OF DOCUMENT / CHANGE LOG FOLLOWS Last Edited By [employer]. Signed By Sean Loyola MD #PAWPR Sean Loyola MD #PAWPR on 11/03/2020 20:00 ET on 11/03/2020 20:00 ET Revision Number - 2 ^^^ Verified/Reviewed by 11/03/201999 PAWPR [facility] PATIENT NAME: RODRÍGUEZ BROOKS [address] MEDICAL REC #: [id number] [place] [address] [facility] STAT[facility] PHYSICIAN documented in this [facility] + Plan note No data available for this section [facility] Evaluation note* Diagnosis Onset Date Resolution Status Encounter for preventative adult health care examinati on acute Type 2 diabetes mellitus acu te [facility] Work Phone: Evaluation note* Diagnosis Onset Date Resolution Status Basal cell carcinoma (BCC) of back acute Type 2 diabetes mellitus acu te Basal cell carcinoma (BCC) of back acute Seborrheic keratosis, inflamed chronic [facility] Work Phone: Evaluation note* Diagnosis Abrasion of left forearm, initial encounter- Primary Wrist pain, left Pain in joint, forearm Wrist sprain, left, initial encounter [facility] Diagnosis Wrist pain, left Pain in joint, forearm documented in this encounter [facility] Discharge instructionsAmbulatory Orders* Dermatology Location: None Selected * General Surgery Location: None Selected [facility] Work Phone: Reason for referral (narrative)* Diagnostic Procedure Only (Routine) - Closed Specialty Diagnoses / Procedures Referred By Contac t Referred To Contact XR IMAGING Diagnoses Wrist pain, left Procedures XR WRIST GENERAL 3V PA/LAT/OBL LEFT RADEX WRIST COMPLETE MINIMUM 3 VIEWS Erwin Chow Jr., BIRD TRAPPER.SUPERVISOR [employer] [address] [place] [address] [place] [address] Referral ID Status Reason Start Date Expiration Date V isits Requested Visits Authorized [id number] Closed Auto-Generate d Referral 08/07/2024 09/06/2025 1 1 [facility]ative)No reason for referral [facility] Work Phone: [facility] for visit Narrative* Diagnostic Procedure Only (Routine) - Closed Specialty Diagnoses / Procedures Referred By Contac t Referred To Contact XR IMAGING Diagnoses Wrist pain, left Procedures XR WRIST GENERAL 3V PA/LAT/OBL LEFT RADEX WRIST COMPLETE MINIMUM 3 VIEWS Erwin Chow Jr., BIRD TRAPPER.SUPER[employer] [address] [place] [address] [place] [address] Referral ID Status Reason Start Date Expiration Date V isits Requested Visits Authorized [id number] Closed Auto-Generate d Referral 08/07/2024 09/06/2025 1 1 [facility] Chief Complaint and Reason for Visit Chief Complaint WORK PHYSICAL/FLU SH OT Reason for Visit Encounter for [facility] adult health care examination Type 2 diabetes mellitus Chief Complaint SPOT ON BACK FLU SHOT 6 wk FU Reason for Visit Basal cell carcinoma (BCC) of back Type 2 diabetes mellitus Basal cell carcinoma (BCC) of back Seborrheic keratosis, inflamed Chief Complaint Admit Date acute - lump on lft testicle February 03, 2 025 2:13pm Reason for Visit Admit Date Elevated blood pressure reading January 2:13pm Epididymal mass February 03, 2025 2:13p m Obesity (BMI 30-39.9) February 03, 2025 2:1 3pm Type 2 diabetes mellitus February 03, 2025 2:13pm Chief Complaint Admit Date acute - lump on lft testicle February 03 2 025 2:13pm Other specified disorders of the male ge nitodilon orga February 10, 2025 1:58pm Chief Complaint Admit Date acute - lump on lft testicle February 03 2 025 2:13pm Other specified disorders of the male ge nitodilon orga February 10, 2025 1:58pm FOLLOW UP February 17, 2025 10:00 am Reason for Visit Admit Date Elevated blood pressure reading January 2:13pm Epididymal mass February 03, 2025 2:13p m Obesity (BMI 30-39.9) February 03, 2025 2:1 3pm Type 2 diabetes mellitus February 03, 2025 2:13pm Type 2 diabetes mellitus February 17, 2025 10:00am Family History No Family History Records Found Relationship Condition Age at Onset Recorded Date/T teresa father Non-Hodgkin's lymphoma Unknown Diabetes mellitus Unknown mother Cerebrovascular accident (CVA) Unknown Summary Purpose Advance Directives No Advanced Directives Records FoundNo Advanced Directives Records FoundNo Advanced Directives Records Found Additional Source Comments Source Comments (unrecognize d section and content) In the event this informatio n is protected by the Federal Confidentiality of Alcohol and Drug Abuse Patient Records regulations: The Federal rules restrict any use of the information to criminally investigate or prosecute any alcohol or drug abuse patient.[facility] HospitalIn the event this information is protected by the Federal Confidentiality of Alcohol and Drug Abuse Patient Records regulations: The Federal rules restrict any use of the information to criminally investigate or prosecute any alcohol or drug abuse patient.[facility] HospitalIn the event this information is protected by the Federal Confidentiality of Alcohol and Drug Abuse Patient Records regulations: The Federal rules restrict any use of the information to criminally investigate or prosecute any alcohol or drug abuse patient.[facility] Goals (unrecognized section and content) Goals may be documented in a n alternate section No data available for this sectionGoals may be documented in an alternate sectionGoals may be documented in an alternate sectionGoals may be documented in an alternate sectionGoals may be documented in an alternate sectionGoals may be documented in an alternate section Patient Care team informatio n (unrecognized section and content) Team Status: Active Member Role Status Dates Dr. Pratik Toledo DO Family Provider Active Dr. Pratik Toledo DO Primary Care Provider Active Team Status: Inactive Member Role Status Dates Dr. Pratik Toledo DO Primary Care Pr ovider, Attending Provider, Referring Provider Active Card Folder Relationship Specialty Start Date End Date Pratik Toledo DO [address] [place] [address] PCP - General Family Medicine 08/07/24 Card Folder Relationship Specialty Start Date End Date Pratik Toledo DO [address] [place] [address] PCP - General Family Medicine 08/07/24 Team Status: Inactive Member Role Status Dates Dr. Pratik Toledo DO Primary Care Provider Active Start: February 03, 2025 End: February 03, 2025 Dr. Pratik Toledo DO Referring Provider Active Start: February 03, 2025 End: February 03, 2025 Rogers GREEN, PA Attending Provider Active St art: February 03, 2025 End: February 03, 2025 Team Status: Active Member Role Status Dates Dr. Pratik Toledo DO Primary Care Provider Active Start: February 03, 2025 Rogers GREEN PA Attending Provider Active St art: February 03, 2025 Rogers GREEN PA Referring Provider Active St art: February 03, 2025 Team Status: Active Member Role Status Dates Dr. Pratik Toledo DO Primary Care Provider Active Team Status: Inactive Member Role Status Dates Dr. Pratik Toledo DO Primary Care Provider Active Start: February 03, 2025 End: February 03, 2025 Rogers GREEN PA Attending Provider Active St art: February 03, 2025 End: February 03, 2025 Rogers Draper PA, [place] Referring Provider Active St art: February 03, 2025 End: February 03, 2025 Team Status: Active Member Role Status Dates Dr. Pratik Toledo DO Primary Care Provider Active Start: February 10, 2025 Rogers GREEN PA Attending Provider Active St art: February 10, 2025 Rogers GREEN PA Referring Provider Active St art: February 10, 2025 Team Status: Inactive Member Role Status Dates Dr. Pratik Toledo DO Primary Care Provider Active Start: February 10, 2025 End: February 10, 2025 Rogers GREEN PA Attending Provider Active St art: February 10, 2025 End: February 10, 2025 Rogers GREEN, [place] Referring Provider Active St art: February 10, 2025 End: February 10, 2025 Team Status: Inactive Member Role Status Dates Dr. Pratik Toledo DO Primary Care Provider Active Start: February 17, 2025 End: February 17, 2025 Dr. Pratik Toledo DO Attending Provider Active Start: February 17, 2025 End: February 17, 2025 Dr. Pratik Toledo DO Referring Provider Active Start: February 17, 2025 End: February 17, 2025 (unrecognized sect ion and content) No Status Records FoundNo Status Records FoundNo Status Records Found INFORMATION SOURCE (unrecogn ized section and content) DATE CREATED AUTHOR 07/27/2023 [facility] ([place]) DATE CREATED AUTHOR AUTHOR'S ORGANIZ ATION 08/10/2024 [facility] DATE CREATED AUTHOR AUTHOR'S ORGANIZ ATION 02/18/2025 [facility] Reason for Visit (unrecogniz ed section and content) Reason Comments Laceration Fell off step stool 30 min ago at home left posterior forearm 5.2cm area 1 cm surface area, left wrist pain FOR RECORDS PERTAINING TO PATIENTS WHO ARE OR HAVE BEEN ENROLLED IN A CHEMICAL DEPENDENCY/SUBSTANCEABUSE PROGRAM, SOME INFORMATION MAY BE OMITTED. This clinical summary was aggregated from multiple sources. Caution should be exercised in using it in the provision of clinical care. This summary normalizes information from multiple sources, and as a consequence, information in this document may materially change the coding, format and clinical context of patient data. In addition, data may be omitted in some cases. CLINICAL DECISIONS SHOULD BE BASED ON THE PRIMARY CLINICAL RECORDS. [employer] provides no warranty or guarantee of the accuracy or completeness of information in this document.
== END | disposition home or self-care (01) ==
LOC: LAB 14:28
PROVIDERS: PCP Family Medicine; Referring Provider Urology; Visit Provider Urology
DX: Z12.5 Encounter for screening for malignant neoplasm of prostate (principal)
CPT/HCPCS: 36415; 84153; G0103